=== PATIENT | female | born 1995 | race Hispanic/Latino ===

== ENCOUNTER 2018-02-22 01:59 | Emergency (ER) | payer OTHER ==
--- NOTE | 2018-02-22 02:36 | EDPHYS ---
Physician Documentation [facility] Name: Esther Royal Age: 22 yrs Sex: Female : 1995 Arrival Date: 02/22/2018 Time: 02:01 Bed 19 Private MD: EVE WILDE ED Physician Yahir Perry HPI: 02/22 02:24 This 22 yrs old Female presents to ER via Ambulatory with complaints of shannan Vaginal Bleeding, + Preg <12wks. 02:24 The patient presents to the emergency department with vaginal bleeding. 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 - Social history:: Smoking status: Patient/guardian denies using tobacco, Patient uses street drugs, marijuana. - Ebola Screening: : No symptoms or risks identified at this time. ROS: 02:24 Constitutional: Negative for fever, chills, and weight loss, Eyes: Negative for injury, shannan pain, redness, and discharge, ENT: Negative for injury, pain, and discharge, Neck: Negative for injury, pain, and swelling, Cardiovascular: Negative for chest pain, palpitations, and edema, Respiratory: Negative for shortness of breath, cough, wheezing, and pleuritic chest pain, Abdomen/GI: Negative for abdominal pain, nausea, vomiting, diarrhea, and constipation, Back: Negative for injury and pain, MS/Extremity: Negative for injury and deformity, Skin: Negative for injury, rash, and discoloration, Neuro: Negative for headache, weakness, numbness, tingling, and seizure, Psych: Negative for depression, anxiety, suicide ideation, homicidal ideation, and hallucinations, Allergy/Immunology: Negative for hives, rash, and allergies, Endocrine: Negative for neck swelling, polydipsia, polyuria, polyphagia, and marked weight changes, Hematologic/Lymphatic: Negative for swollen nodes, abnormal bleeding, and unusual bruising. 02:24 : Positive for vaginal bleeding. Exam: 02:24 Constitutional: This is a well developed, well nourished patient who is awake, alert, shannan and in no acute distress. Head/Face: Normocephalic, atraumatic. Eyes: Pupils equal round and reactive to light, extra-ocular motions intact. Lids and lashes normal. Conjunctiva and sclera are non-icteric and not injected. Cornea within normal limits. Periorbital areas with no swelling, redness, or edema. ENT: Nares patent. No nasal discharge, no septal abnormalities noted. Tympanic membranes are normal and external auditory canals are clear. Oropharynx with no redness, swelling, or masses, exudates, or evidence of obstruction, uvula midline. Mucous membranes moist. Neck: Trachea midline, no thyromegaly or masses palpated, and no cervical lymphadenopathy. Supple, full range of motion without nuchal rigidity, or vertebral point tenderness. No Meningismus. Chest/axilla: Normal chest wall appearance and motion. Nontender with no deformity. No lesions are appreciated. Cardiovascular: Regular rate and rhythm with a normal S1 and S2. No gallops, murmurs, or rubs. Normal PMI, no JVD. No pulse deficits. Respiratory: Lungs have equal breath sounds bilaterally, clear to auscultation and percussion. No rales, rhonchi or wheezes noted. No increased work of breathing, no retractions or nasal flaring. Abdomen/GI: Soft, non-tender, with normal bowel sounds. No distension or tympany. No guarding or rebound. No evidence of tenderness throughout. Back: No spinal tenderness. No costovertebral tenderness. Full range of motion. Skin: Warm, dry with normal turgor. Normal color with no rashes, no lesions, and no evidence of cellulitis. MS/ Extremity: Pulses equal, no cyanosis. Neurovascular intact. Full, normal range of motion. Neuro: Awake and alert, GCS 15, oriented to person, place, time, and situation. Cranial nerves II-XII grossly intact. Motor strength 5/5 in all extremities. Sensory grossly intact. Cerebellar exam normal. Normal gait. Psych: Awake, alert, with orientation to person, place and time. Behavior, mood, and affect are within normal limits. 02:24 Musculoskeletal/extremity: DVT Exam: No signs of deep vein thrombosis. no pain, no swelling, no tenderness, negative Homans' sign noted on exam, no appreciated bluish discoloration, no erythema, no increased warmth. Vital Signs: 02:21 BP 118 / 75; Pulse 107; Resp 20; Temp 98; Pulse Ox 99% on R/A; Weight 79.38 kg (R); ak1 Height 5 ft. 5 in. (165.10 cm); Pain 5/10; 02:21 Body Mass Index 29.12 (79.38 kg, 165.10 cm) ak1 MDM: 02:19 Patient medically screened. [facility] 02:25 Data reviewed: vital signs, nurses notes, lab test result(s), urinalysis. [facility] 02/22 02:47 Order name: Urine Dipstick--Ancillary (enter results) [facility] 02/22 02:47 Order name: Urine --Ancillary (enter results) [facility] 02/22 02:24 Order name: Urine Dipstick-Ancillary (obtain specimen); Complete Time: 02:39 [facility] 02/22 02:24 Order name: Urine Test (obtain specimen); Complete Time: 02:39 [facility] Administered Medications: No medications were administered Point of Care Testing: Urine : 02:43 hCG Reading: Negative; Control Reading: Positive; bs1 Disposition: 02/22/18 02:35 Discharged to Home. Impression: Dysmenorrhea, unspecified. - Condition is Stable. - Discharge Instructions: Dysmenorrhea, Dysmenorrhea, [id number]. - Medication Reconciliation Form, Thank You Letter, Antibiotic Education, Prescription Opioid Use form. - Follow up: EVE WILDE; When: 2 - 3 days; Reason: Recheck today's complaints, Continuance of care, Re-evaluation by your physician. - Problem is new. - Symptoms have improved. Signatures: Dispatcher [employer] EDMS Yahir Perry MD MD cha Krenek, Amber RN RN ak1 Lore Kraft RN RN bs1 Corrections: (The following items were deleted from the chart) 02:54 02:35 02/22/2018 02:35 Discharged to Home. Impression: Dysmenorrhea, unspecified. bs1 Condition is Stable. Forms are Medication Reconciliation Form, Thank You Letter, Antibiotic Education, Prescription Opioid Use. Follow up: EVE WILDE; When: 2 - 3 days; Reason: Recheck today's complaints, Continuance of care, Re-evaluation by your physician. Problem is new. Symptoms have improved. shannan
--- NOTE | 2018-02-22 02:36 | ER ---
Nurse's Notes [facility] Name: Esther Royal Age: 22 yrs Sex: Female : 1995 Arrival Date: 02/22/2018 Time: 02:01 Bed 19 Private MD: EVE WILDE Diagnosis: Dysmenorrhea, unspecified Presentation: 02/22 02:13 Presenting complaint: Patient states: she starting having vaginal bleeding using 1 pad ak1 and 1 tampon. pt c/o abd cramps. pt stated she was drinking "2 priyanka's" and smoking weed when the bleeding started. pt can not recall LMP due to having in October 2017. Transition of care: patient was not received from another setting of care. Onset of symptoms was February 22, 2018. Risk Assessment: Do you want to hurt yourself or someone else? Patient reports no desire to harm self or others. Initial Sepsis Screen: Does the patient meet any 2 criteria? No. Patient's initial sepsis screen is negative. Does the patient have a suspected source of infection? No. Patient's initial sepsis screen is negative. Care prior to arrival: None. 02:13 Method Of Arrival: Ambulatory ak1 02:13 Acuity: PAVEL 3 ak1 Triage Assessment: 02:21 General: Appears unkempt, Behavior is crying. Pain: Complains of pain in suprapubic ak1 area, right lower quadrant and left lower quadrant. EENT: No signs and/or symptoms were reported regarding the EENT system. Neuro: No deficits noted. Cardiovascular: No deficits noted. Respiratory: No deficits noted. GI: Reports cramping. : Reports vaginal bleeding that is light flow, spotty. Derm: No signs and/or symptoms reported regarding the dermatologic system. Musculoskeletal: No signs and/or symptoms reported regarding the musculoskeletal system. 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 - Social history:: Smoking status: Patient/guardian denies using tobacco, Patient uses street drugs, marijuana. - Ebola Screening: : No symptoms or risks identified at this time. Screenin:23 Abuse screen: Denies threats or abuse. Denies injuries from another. Nutritional ak1 screening: No deficits noted. Tuberculosis screening: No symptoms or risk factors identified. Fall Risk None identified. Assessment: 02:30 General: Appears in no apparent distress. Behavior is cooperative, Smells of alcohol, bs1 Marijuana. Pain: Denies pain. Neuro: Level of Consciousness is awake, alert, obeys commands, Oriented to person, place, time, situation, Appropriate for age. Cardiovascular: Heart tones S1 S2 present Capillary refill < 3 seconds Patient's skin is warm and dry. Respiratory: Airway is patent Breath sounds are clear bilaterally. GI: Abdomen is round non-distended, Bowel sounds present X 4 quads. : Urine is clear, Reports vaginal bleeding that is bright red, heavy flow. EENT: No signs and/or symptoms were reported regarding the EENT system. Derm: Skin is intact. Musculoskeletal: Circulation, motion, and sensation intact. Capillary refill < 3 seconds, Range of motion: intact in all extremities. 02:50 Reassessment: Patient appears in no apparent distress at this time. Patient and/or bs1 family updated on plan of care and expected duration. Pain level reassessed. Patient is alert, oriented x 3, equal unlabored respirations, skin warm/dry/pink. 02:50 Obstetrical Assessment: General assessment: awake and alert. bs1 Vital Signs: 02:21 BP 118 / 75; Pulse 107; Resp 20; Temp 98; Pulse Ox 99% on R/A; Weight 79.38 kg (R); ak1 Height 5 ft. 5 in. (165.10 cm); Pain 5/10; 02:21 Body Mass Index 29.12 (79.38 kg, 165.10 cm) ak1 Vitals: 02:43 Heart Tones N/A. bs1 ED Course: 02:01 Patient arrived in ED. ds1 02:16 EVE WILDE is Private Physician. ds1 02:19 Yahir Perry MD is Attending Physician. [facility] 02:19 Triage completed. ak1 02:21 Arm band placed on Patient placed in an exam room, on a stretcher, on pulse oximetry, ak1 Patient notified of wait time. 02:23 Patient has correct armband on for positive identification. Bed in low position. Call ak1 light in reach. Side rails up X 1. 02:24 Lore Kraft, RN is Primary Nurse. bs1 02:35 EVE WILDE is Referral Physician. [facility] 02:43 No provider procedures requiring assistance completed. Patient did not have IV access bs1 during this emergency room visit. Administered Medications: No medications were administered Point of Care Testing: Urine : 02:43 hCG Reading: Negative; Control Reading: Positive; bs1 Outcome: 02:35 Discharge ordered by . shannan 02:50 Discharged to home ambulatory. bs1 02:50 Condition: stable 02:50 Discharge instructions given to patient, Instructed on discharge instructions, follow up and referral plans. Demonstrated understanding of instructions, follow-up care. 02:54 Patient left the ED. bs1 Signatures: Yahir Perry MD MD cha Sanford, Demi ds1 Piper Smart RN RN ak1 Lore Kraft, GABRIELLA RN bs1
[2018-02-22 03:06] LABS: Urine Blood 2+ (NEG); Urine Glucose NEGATIVE (NEG); Urine Protein NEGATIVE (NEG)
== END 2018-02-22 02:54 | disposition home or self-care (01) ==
LOC: ER 01:59
DX: N94.6 Dysmenorrhea, unspecified (principal); E03.9 Hypothyroidism, unspecified
CPT/HCPCS: 81003; 81025; 99283

== ENCOUNTER 2019-06-27 14:52 | Emergency (ER) | payer OTHER ==
--- OUTSIDE RECORDS SUMMARY | 2019-06-27 14:55 | XMS REPORT ---
:1995 [facility] Address [address] [place] [address] Dr. Apodaca [address] [place] [id number] Care Team Providers Name Role Phone Unavailable Unavailable Unavailable Problems This patient has no known problems. Allergies, Adverse Reactions, Alerts This patient has no known allergies or adverse reactions. Medications This patient has no known medications.
[2019-06-27] MEDS ORDERED: AZITHROMYCIN 250 MG TAB ONE (15:41)
[2019-06-27] MEDS ORDERED: CEFTRIAXONE 1000 MG/VIAL ONE (15:42)
--- NOTE | 2019-06-27 15:54 | ER ---
Nurse's Notes [facility] Name: Esther Royal Age: 23 yrs Sex: Female : 1995 Arrival Date: 06/27/2019 Time: 14:55 Bed 7 Private MD: Diagnosis: Urinary tract infection, site not specified;Unspecified sexually transmitted disease-exposure to chlamydia and gonorrhea Presentation: 06/27 15:01 Presenting complaint: Patient states: my x boyfriend went to get checked about a week tw2 ago and he has chlamydia and gonorrhea and they told him to tell me to come in and get tested, and the bottom my back is hurting but i feel like i have BV and it has a smell. i have white vaginal discharge but it smells. Transition of care: patient was not received from another setting of care. Onset of symptoms was June 27, 2019. Risk Assessment: Do you want to hurt yourself or someone else? Patient reports no desire to harm self or others. Initial Sepsis Screen: Does the patient meet any 2 criteria? No. Patient's initial sepsis screen is negative. Does the patient have a suspected source of infection? No. Patient's initial sepsis screen is negative. Care prior to arrival: None. 15:01 Method Of Arrival: Ambulatory tw2 15:05 Acuity: PAVEL 3 tw2 Triage Assessment: 15:03 General: Appears in no apparent distress. Behavior is calm, cooperative, appropriate tw2 for age. Pain: Also complains of. Musculoskeletal: Reports pain in left low back and right low back. 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 - Social history:: Smoking status: . - Ebola Screening: : Patient denies exposure to infectious person. Screenin:09 Abuse screen: Denies threats or abuse. Nutritional screening: No deficits noted. tw2 Tuberculosis screening: No symptoms or risk factors identified. Fall Risk None identified. Assessment: 15:09 Reassessment: pt given urine specimen cup and ambulated to the restroom at this time. tw2 15:20 General: Appears comfortable, Behavior is calm, cooperative. Pain: Complains of pain in aa5 left low back and right low back Pain does not radiate. Pain currently is 5 out of 10 on a pain scale. Quality of pain is described as aching, Is continuous. Neuro: Level of Consciousness is awake, alert, obeys commands, Oriented to person, place, time, situation. Cardiovascular: Heart tones S1 S2 present Patient's skin is warm and dry. Rhythm is regular. Respiratory: Airway is patent Respiratory effort is even, unlabored, Respiratory pattern is regular, symmetrical. GI: Abdomen is round non-distended, Bowel sounds present X 4 quads. Abd is soft and non tender X 4 quads. : Reports discharge, white. EENT: No signs and/or symptoms were reported regarding the EENT system. Derm: Skin is pink, warm \T\ dry. Musculoskeletal: Range of motion: intact in all extremities. 16:00 Reassessment: Patient is alert, oriented x 3, equal unlabored respirations, skin aa5 warm/dry/pink. Vital Signs: 15:04 BP 120 / 90; Pulse 119; Resp 17; Temp 98.4(TE); Pulse Ox 99% on R/A; Weight 54.43 kg tw2 (R); 16:00 BP 118 / 84; Pulse 100; Resp 16 S; Pulse Ox 99% on R/A; aa5 ED Course: 14:55 Patient arrived in ED. mr 14:57 Dariusz Marianne, HOW[facility]. kb 14:57 Kory Davila MD is Attending Physician. kb 15:03 Triage completed. tw2 15:03 Arm band placed on. tw2 15:07 Vianey Jerez, GABRIELLA is Primary Nurse. aa5 15:09 Call light in reach. tw2 15:20 No provider procedures requiring assistance completed. aa5 15:40 Urine collected: clean catch specimen, cloudy, moe colored. jb1 16:00 Patient did not have IV access during this emergency room visit. aa5 Administered Medications: 15:48 Drug: Zithromax 1 grams Route: PO; rv 16:00 Follow up: Response: No adverse reaction aa5 15:49 Drug: Rocephin (cefTRIAXone) 250 mg Route: IM; Site: left gluteus; rv 16:00 Follow up: Response: No adverse reaction aa5 15:57 CANCELLED (Physician Discretion): metroNIDAZOLE 2 grams PO once kb Outcome: 15:54 Discharge ordered by . kb 16:00 Discharged to home ambulatory. aa5 16:00 Condition: good 16:00 Discharge instructions given to patient, Instructed on discharge instructions, follow up and referral plans. medication usage, Demonstrated understanding of instructions, follow-up care, medications, Prescriptions given X 1. 16:03 Patient left the ED. aa5 Addendum: 06/30/2019 07:11 Addendum: Culture Results: Positive urine culture. No further action required. Bacteria e b sensitive to prescribed antibiotic. Signatures: Roberto Carlos Elizalde jbMarianne Galicia, TRAFFIC ENGINEERING DIRECTOR-C TRAFFIC ENGINEERING DIRECTOR-Ckb Rosanna Winkler, RN RN aj1 Guerda Escalante Solitario, Vianey, RN RN aa5 Kristin Bonilla RN RN 2 Kayla Sampson Ronaldo, GABRIELLA RN rv Corrections: (The following items were deleted from the chart) 06/27 15:05 15:01 Acuity: PAVEL 4 tw2 tw2 15:07 15:01 Rosanna Winkler, RN is Primary Nurse. aj1 aa5 15:07 15:07 Primary Nurse role handed off by Rosanna Winkler, RN [place] [id number]
--- NOTE | 2019-06-27 15:55 | EDPHYS ---
Physician Documentation [facility] Name: Esther Royal Age: 23 yrs Sex: Female : 1995 Arrival Date: 06/27/2019 Time: 14:55 Bed 7 Private MD: ED Physician Kory Davila HPI: 06/27 15:29 This 23 yrs old Female presents to ER via Ambulatory with complaints of STD kb Exposure. 15:30 The patient presents with a possible exposure to a sexually transmitted disease, kb gonorrhea, chlamydia, urinary symptoms, dysuria, frequency. Onset: The symptoms/episode began/occurred 2 week(s) ago. Modifying factors: The symptoms are alleviated by nothing, the symptoms are aggravated by urinating. Associated signs and symptoms: Pertinent positives: dysuria, urinary frequency, vaginal discharge. Severity of symptoms: At their worst the symptoms were moderate, in the emergency department the symptoms are unchanged. The patient has not experienced similar symptoms in the past. The patient has not recently seen a physician. Pt reports her ex-boyfriend called and told her he had chlamydia and gonorrhea and she needed to get tested. Pt reports white, foul smelling discharge for a couple of weeks. Pt also reports dysuria, frequency, foul smelling urine. 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 - Social history:: Smoking status: . - Ebola Screening: : Patient denies exposure to infectious person. ROS: 15:29 Constitutional: Negative for fever, chills, and weight loss, Cardiovascular: Negative kb for chest pain, palpitations, and edema, Respiratory: Negative for shortness of breath, cough, wheezing, and pleuritic chest pain, Abdomen/GI: Negative for abdominal pain, nausea, vomiting, diarrhea, and constipation, Back: Negative for injury and pain, MS/Extremity: Negative for injury and deformity, Skin: Negative for injury, rash, and discoloration, Neuro: Negative for headache, weakness, numbness, tingling, and seizure. 15:29 : Positive for urinary symptoms, urinary frequency, burning with urination, foul smelling urine, vaginal discharge. Exam: 15:29 Constitutional: This is a well developed, well nourished patient who is awake, alert, kb and in no acute distress. Head/Face: Normocephalic, atraumatic. Neck: Trachea midline, no thyromegaly or masses palpated, and no cervical lymphadenopathy. Supple, full range of motion without nuchal rigidity, or vertebral point tenderness. No Meningismus. Chest/axilla: Normal chest wall appearance and motion. Nontender with no deformity. No lesions are appreciated. Cardiovascular: Regular rate and rhythm with a normal S1 and S2. No gallops, murmurs, or rubs. Normal PMI, no JVD. No pulse deficits. Respiratory: Lungs have equal breath sounds bilaterally, clear to auscultation and percussion. No rales, rhonchi or wheezes noted. No increased work of breathing, no retractions or nasal flaring. Abdomen/GI: Soft, non-tender, with normal bowel sounds. No distension or tympany. No guarding or rebound. No evidence of tenderness throughout. Back: No spinal tenderness. No costovertebral tenderness. Full range of motion. Skin: Warm, dry with normal turgor. Normal color with no rashes, no lesions, and no evidence of cellulitis. MS/ Extremity: Pulses equal, no cyanosis. Neurovascular intact. Full, normal range of motion. Neuro: Awake and alert, GCS 15, oriented to person, place, time, and situation. Cranial nerves II-XII grossly intact. Motor strength 5/5 in all extremities. Sensory grossly intact. Cerebellar exam normal. Normal gait. Vital Signs: 15:04 BP 120 / 90; Pulse 119; Resp 17; Temp 98.4(TE); Pulse Ox 99% on R/A; Weight 54.43 kg tw2 (R); 16:00 BP 118 / 84; Pulse 100; Resp 16 S; Pulse Ox 99% on R/A; aa5 MDM: 15:06 Patient medically screened. 15:29 Data reviewed: vital signs, nurses notes. Data interpreted: Pulse oximetry: on room air kb is 99 %. Interpretation: normal. 15:44 Counseling: I had a detailed discussion with the patient and/or guardian regarding: the kb historical points, exam findings, and any diagnostic results supporting the discharge/admit diagnosis, lab results, the need for outpatient follow up, an OB/Gyne specialist, to return to the emergency department if symptoms worsen or persist or if there are any questions or concerns that arise at home. 15:51 ED course: Pt reports she has to leave to get ready for work. Educated that we are kb waiting for microscopic exam of urine to come back before discharge to make sure there is no trichomoniasis. Pt requests to get the treatment for that and leave now. Educated not to consume alcohol after taking Flagyl due to antibuse affect. Verbal understanding received. . 15:57 ED course: urine micro returned. No trichomoniasis in urine. . kb 06/27 15:17 Order name: Urine Microscopic Only; Complete Time: 15:57 kb 06/27 15:41 Order name: Urine Dipstick--Ancillary (enter results) sp 06/27 15:41 Order name: Urine --Ancillary (enter results) 06/27 15:58 Order name: Urine Culture EDIA 06/27 15:17 Order name: Urine Test (obtain specimen); Complete Time: 15:32 kb 06/27 15:17 Order name: Urine Dipstick-Ancillary (obtain specimen); Complete Time: 15:32 kb Administered Medications: 15:48 Drug: Zithromax 1 grams Route: PO; rv 16:00 Follow up: Response: No adverse reaction aa5 15:49 Drug: Rocephin (cefTRIAXone) 250 mg Route: IM; Site: left gluteus; rv 16:00 Follow up: Response: No adverse reaction aa5 15:57 CANCELLED (Physician Discretion): metroNIDAZOLE 2 grams PO once kb Disposition: 18:14 Co-signature as Attending Physician, Kory Davila MD. rn Disposition: 06/27/19 15:54 Discharged to Home. Impression: Urinary tract infection, site not specified, Unspecified sexually transmitted disease - exposure to chlamydia and gonorrhea. - Condition is Stable. - Discharge Instructions: Sexually Transmitted Disease, Vqoi-yk-Ywdn, Urinary Tract Infection, Adult, Eoxf-py-Saxl. - Prescriptions for Bactrim DS 800- 160 mg Oral Tablet - take 1 tablet by ORAL route every 12 hours for 10 days; 20 tablet. - Medication Reconciliation Form, Thank You Letter, Antibiotic Education, Prescription Opioid Use form. - Follow up: Emergency Department; When: As needed; Reason: Worsening of condition. Follow up: Private Physician; When: 2 - 3 days; Reason: Recheck today's complaints, Continuance of care, Re-evaluation by your physician. Signatures: Dispatcher [employer] EDMarianne Egan, GEOFFREY-C UNDERGROUND UTILITY LOCATOR-Kory Fuentes MD MD rn Calderon, Audri RN RN aa5 Kristin Bonilla RN RN tw2 En Keene RN RN rv Corrections: (The following items were deleted from the chart) 15:57 15:54 Flagyl [metroNIDAZOLE 2 grams PO once] ordered. kb kb 16:03 15:54 06/27/2019 15:54 Discharged to Home. Impression: Urinary tract infection, site aa5 not specified; Unspecified sexually transmitted disease - exposure to chlamydia and gonorrhea. Condition is Stable. Discharge Instructions: Sexually Transmitted Disease, Vsfg-sr-Sqoh, Urinary Tract Infection, Adult, Jzwg-qp-Pzbq. Prescriptions for Bactrim DS 800-160 mg Oral Tablet - take 1 tablet by ORAL route every 12 hours for 10 days; 20 tablet. and Forms are Medication Reconciliation Form, Thank You Letter, Antibiotic Education, Prescription Opioid Use. Follow up: Emergency Department; When: As needed; Reason: Worsening of condition. Follow up: Private Physician; When: 2 - 3 days; Reason: Recheck today's complaints, Continuance of care, Re-evaluation by your physician. kb
[2019-06-27 15:56] LABS: Urine Bacteria LOADED /HPF (<20); Urine Culture Reflex Order REFLEXED; Urine RBC <5 /HPF (NONE SEEN)
[2019-06-27 16:19] VITALS: BP 120/90; TEMP 98.4; O2SAT 99
[2019-06-27 16:26] LABS: Urine Blood TRACE (NEG); Urine Glucose NEGATIVE (NEG); Urine Protein NEGATIVE (NEG); Urine Specific Gravity 1.025 (1.005-1.030)
== END 2019-06-27 16:03 | disposition home or self-care (01) ==
LOC: ER 14:52
DX: N39.0 Urinary tract infection, site not specified (principal); A64 Unspecified sexually transmitted disease; Z20.2 Contact with and (suspected) exposure to infections with a predominantly sexual mode of transmission; E03.9 Hypothyroidism, unspecified
CPT/HCPCS: 81003; 81015; 81025; 87077; 87086; 87088; 87186; 96372; 99283

== ENCOUNTER 2020-03-11 05:08 | Inpatient (IN) | payer OTHER ==
[2020-03-11] MEDS ORDERED: BUTORPHANOL 1 MG/ML INJ IV PRN (16:06)
[2020-03-11] MEDS ORDERED: Ringers Lactate 1,000 ML IV PRN (16:06)
[2020-03-11] MEDS ORDERED: PROMETHAZINE INJ 25 MG/ML AMP IM PRN (16:06)
[2020-03-11] MEDS ORDERED: miSOPROStoL 100 MCG TAB VAG PRN (16:09)
[2020-03-11] MEDS ORDERED: ZOLPIDEM TARTRATE 10 MG TABLET PO PRN (16:13)
[2020-03-11] MEDS ORDERED: OXYTOCIN/LR 20 UNIT/1,000 ML BAG IV SCH (17:00)
[2020-03-11] MEDS ORDERED: Ringers Lactate 1,000 ML IV SCH (17:00)
[2020-03-11 17:06] LABS: Urine Appearance CLEAR; Urine Bilirubin NEGATIVE (NEG); Urine Blood NEGATIVE (NEG); Urine Color YELLOW; Urine Glucose NEGATIVE (NEG); Urine Protein NEGATIVE (NEG)
[2020-03-11 17:07] LABS: Urine Microscopic Reflex ORDER UMIC
[2020-03-11 17:17] LABS: Urine Bacteria 20-50 /HPF (<20); Urine RBC <5 /HPF (NONE SEEN)
[2020-03-11 17:18] LABS: Absolute Lymphocytes (CBC) 1.8 K/uL (0.7-4.9); Basophils % 0.7 % (0-1.3); Hematocrit 31.5 % (36.0-45.0); Lymphocytes % 17.8 % (15.3-44.8); RBC Red Blood Cell Count 3.77 M/uL (3.86-4.86); Urine Culture Reflex Order REFLEXED; Urine Mucus 2+ /HPF (NONE SEEN)
--- OUTSIDE RECORDS SUMMARY | 2020-03-11 22:42 | XMS REPORT | Continuity of Care Document ---
:1995 Author Organization [facility] t Address [address] [place] [address] Care Team Providers Name Role Phone Rinku HALE Attending Clinician Lab, Teja Maddox I Attending Clinician Unavailable Problems This patient has no known problems. Allergies, Adverse Reactions, Alerts This patient has no known allergies or adverse reactions. Medications This patient has no known medications. Procedures This patient has no known procedures. Encounters Start End Encounter Admission Attending Care Care Encounter Source Date/Time Date/Time Type Type Clinicians Facility Department ID 2020-02-26 2020-02-26 Letter BENEDICT Dobbs [id number] 00:00:00 00:00:00 (Out) Vy Byrnes [id number] [place] [id number] Professio [phone] [address] 2020-02-26 2020-02-26 Letter BENEDICT Dobbs [id number] 00:00:00 00:00:00 (Out) Vy [place] [id number] [place] [id number] Professio [phone] [address] 2020-02-23 2020-02-23 Telephone MAURIZIO Dobbs [id number] 00:00:00 00:00:00 Vy DIOP [id number] [facility] [id number] 2020-02-22 2020-02-22 Laboratory Lab, [facility] [id number] 09:46:55 10:06:55 Only Fam Pob I [facility] [id number] [place] [id number] [facility] [phone] nal [phone] One Results This patient has no known results.
[2020-03-12 00:50] LABS: RPR (Rapid Plasma Reagin) NON-REACT (NON-REACT)
[2020-03-12] MEDS ORDERED: METHYLERGONOVINE 0.2MG/ML AMP IM ONE (06:15)
[2020-03-12] MEDS ORDERED: CARBOPROST TROME 250 MCG/ML IM ONE (06:15)
[2020-03-12] MEDS ORDERED: LIDOCAINE 1% MPF 30 ML VIAL ONE (06:15)
[2020-03-12] MEDS ORDERED: BISACODYL 10 MG RECTAL SUPP RECT PRN (06:45)
[2020-03-12] MEDS ORDERED: Oxycodone HCl/Acetaminophen 1 TAB TAB PO PRN ×2 (06:45)
[2020-03-12] MEDS ORDERED: ACETAMINOPHEN 500 MG TAB PO PRN (06:45)
[2020-03-12] MEDS ORDERED: DIPHENHYDRAMINE 25 MG TAB/CAP PO PRN (06:45)
[2020-03-12] MEDS ORDERED: DOCUSATE NA/SENNA CONC 1 TAB PO PRN (06:45)
[2020-03-12] MEDS ORDERED: OXYTOCIN/LR 20 UNIT/1,000 ML BAG IV SCH (07:00)
[2020-03-12] MEDS ORDERED: Ringers Lactate 1,000 ML IV ONE (07:20)
[2020-03-12] MEDS: IBUPROFEN 200 MG TAB PO PRN ×3 (07:50→23:45)
--- NOTE | 2020-03-12 08:40 | OP ---
Surgeon: Cooper Sommers MD A 24-year-old 2, para 0, 39 weeks 2 days, had Cytotec inserted yesterday x3, 50 mcg doses. T his morning, she was 2 cm, but within the next 15 to 20 minutes, went to complete. Spontaneous preci pitous, but controlled vaginal delivery of 7 pounds 6 ounces female, Apgars 9 and 9. Bilateral first -degree lacerations sutured with 2-0 chromic under local infiltration. Schultze delivery of the plac enta, which inspected and noted to be intact and normal. Less than 350 cc blood loss. The patient h ad 1 mg of Stadol and 25 mg of Phenergan IM approximately 3 hours ago. Tolerated all procedures well . Final Diagnoses: Intrauterine gestation, 39 weeks 2 days, Cytotec for labor induction. Vaginal deli very at 39 weeks 3 days, precipitous but controlled. Anemia during her , anemia on admissio n, will be addressed. DUSTIN/PRATIMA Voice ID: [id number] Report ID: [id number]
--- NOTE | 2020-03-12 09:10 | PREOPHP ---
Date of Admission: 03/11/2020 History: A 24-year-old 2, para 0, 39 weeks 2 days, history of herpes, herpes free interval, and the patient is on acyclovir. Discussion several times in the office about Cytotec. We have deci ded to proceed at this time. Hyperstimulation, increased chance for section, all discussed. The patient is 1.5 cm, 40% to possibly 50% effaced, -1 station. Vertex well applied. We will inse rt 50 mcg of Cytotec q.6 hours and then Pitocin beginning tomorrow. This is a ripening process. The patient is well aware of this. Full labor talk given to the patient and her mother. Beta strep neg ative, Rh positive, immune to Rubella. ERINC/MODL Voice ID: [id number]
[2020-03-12 18:37] LABS: Barbiturates NEGATIVE (NEGATIVE); Benzodiazepines POSITIVE (NEGATIVE); Cocaine NEGATIVE (NEGATIVE); METHAMPHETAM NEGATIVE (NEGATIVE); Methadone NEGATIVE (NEGATIVE); Opiates NEGATIVE (NEGATIVE); Phencyclidine NEGATIVE (NEGATIVE); THC Cannibis NEGATIVE (NEGATIVE)
[2020-03-13] MEDS ORDERED: Tdap (Diph,Pertuss(Acell),Tet Vac) 0.5 ML SYR IMVAC ONE (07:37)
[2020-03-13 09:15] VITALS: BP 122/64; TEMP 97.6
--- NOTE | 2020-03-13 10:20 | DS ---
Esther Royal is a 24-year-old 2, para 0, 39 weeks 3 days, had Cytotec for cervical ripening. Went into a very active labor. Had a precipitous, but controlled delivery of a 7 pounds 6 ounces fe male, Apgars 9 and 9. Bilateral first-degree lacerations repaired with 2-0 chromic under local infil tration. During the labor, had Stadol 1 mg IV, Phenergan 25 mg IM. Schultze delivery of the placent a, which was inspected and noted to be intact. 350 cc or less blood loss. Rh positive, immune to ru jazmin. Negative beta strep screen. ; afebrile, ambulating and voiding. Lochia is normal. Apparently had some anonymous , called CPS, told them the patient was taking Xanax during her . Drug screen showed indeed benzodiazepine. CPS has gotten involved and talked to the patient. From an obstetrical standpoint, she is doing quite well and will be dismissed later today. Final Diagnoses: Term intrauterine , 39 weeks 3 days, Cytotec for cervical ripening. Labor induction. Vaginal delivery. Positive drug screen. CPS involved. Tdap offered. DUSTIN/PRATIMA Voice ID: [id number] Report ID: [id number]
[2020-03-18 12:03] LABS: HBsAG Nonreactive (Nonreactive)
== END 2020-03-13 10:35 | disposition home or self-care (01) | DRG 807 ==
LOC: 2ND-WC 16:02
PROVIDERS: ADMIT Specialist; ATTEND Specialist
PROC: 3E0P7VZ Introduction of Hormone into Female Reproductive, Via Natural or Artificial Opening (ICD-10-PCS; principal; 2020-03-12)
PROC: 10E0XZZ Delivery of Products of Conception, External Approach (ICD-10-PCS; 2020-03-12)
PROC: 10907ZC Drainage of Amniotic Fluid, Therapeutic from Products of Conception, Via Natural or Artificial Opening (ICD-10-PCS; 2020-03-12)
PROC: 0HQ9XZZ Repair Perineum Skin, External Approach (ICD-10-PCS; 2020-03-12)
DX: O98.32 Other infections with a predominantly sexual mode of transmission complicating childbirth (principal); Z37.0 Single live birth; A60.09 Herpesviral infection of other urogenital tract; O99.02 Anemia complicating childbirth; D64.9 Anemia, unspecified; F19.90 Other psychoactive substance use, unspecified, uncomplicated; Z3A.39 39 weeks gestation of pregnancy; Z23 Encounter for immunization; Z11.59 Encounter for screening for other viral diseases
CPT/HCPCS: 36415; 80307; 81003; 81015; 85025; 86592; 86901; 87086; 87088; 87340; 90471; 90715; J0595; J2210; J2550; J2590; J7120; U0002

== ENCOUNTER 2020-03-14 00:02 | Emergency (ER) | payer OTHER ==
--- OUTSIDE RECORDS SUMMARY | 2020-03-14 00:04 | XMS REPORT | Continuity of Care Document ---
:1995 Author Organization [facility] t Address [address] [place] [address] Care Team Providers Name Role Phone Rinku HALE Attending Clinician Lab, Teja Pob I Attending Clinician Unavailable Problems This patient has no known problems. Allergies, Adverse Reactions, Alerts This patient has no known allergies or adverse reactions. Medications This patient has no known medications. Procedures This patient has no known procedures. Encounters Start End Encounter Admission Attending Care Care Encounter Source Date/Time Date/Time Type Type Clinicians Facility Department ID 2020-02-26 2020-02-26 Letter BENEDICT Dobbs [id number] 00:00:00 00:00:00 (Out) Vy Byrnes [id number] [place] [id number] Professio [phone] [address] 2020-02-26 2020-02-26 Letter BENEDICT Dobbs [id number] 00:00:00 00:00:00 (Out) Vy Byrnes [id number] [place] [id number] Professio [phone] [address] 2020-02-23 2020-02-23 Telephone MAURIZIO Dobbs [id number] 00:00:00 00:00:00 Vy DIOP [id number] [facility] [id number] 2020-02-22 2020-02-22 Laboratory Lab, [facility] [id number] 09:46:55 10:06:55 Only Fam Pob I [facility] [id number] [place] [id number] Professio [phone] nal [phone] One Results This patient has no known results.
[2020-03-14 00:52] LABS: Protime INR 0.9
[2020-03-14 00:56] LABS: Barbiturates NEGATIVE (NEGATIVE); Benzodiazepines NEGATIVE (NEGATIVE); Cocaine NEGATIVE (NEGATIVE); METHAMPHETAM NEGATIVE (NEGATIVE); Methadone NEGATIVE (NEGATIVE); Opiates NEGATIVE (NEGATIVE); Phencyclidine NEGATIVE (NEGATIVE); THC Cannibis NEGATIVE (NEGATIVE)
[2020-03-14 00:58] LABS: Absolute Lymphocytes (CBC) 2.2 K/uL (0.7-4.9); Basophils % 0.5 % (0-1.3); Hematocrit 30.7 % (36.0-45.0); Lymphocytes % 17.1 % (15.3-44.8); RBC Red Blood Cell Count 3.68 M/uL (3.86-4.86)
[2020-03-14 01:06] LABS: ALT/SGPT 11 U/L (12-78); AST/SGOT 20 U/L (15-37); Albumin 2.9 g/dL (3.4-5.0); Alkaline Phosphatase 134 U/L (45-117); BUN Blood Urea Nitrogen 10 mg/dL (7-18); Bicarbonate 21 mmol/L (21-32); Bilirubin Direct < 0.1 mg/dL (0-0.2); Bilirubin Total 0.3 mg/dL (0.2-1.0); Glucose Level 82 mg/dL (74-106); Potassium 3.8 mmol/L (3.5-5.1); Protein, Total 7.2 g/dL (6.4-8.2); Sodium Level 141 mmol/L (136-145); Uric Acid 7.6 mg/dL (2.6-6.0)
[2020-03-14 02:37] LABS: Urine Blood 3+ (NEG); Urine Glucose NEGATIVE (NEG); Urine Protein 1+ (NEG); Urine pH 5.5 (5.0-7.0)
[2020-03-14] MEDS ORDERED: CEPHALEXIN 250 MG CAP ONE (02:56)
[2020-03-14] MEDS ORDERED: ACETAMINOPHEN 325 MG TABLET ONE (03:00)
--- NOTE | 2020-03-14 03:01 | ER ---
Nurse's Notes [facility] Name: Esther Royal Age: 24 yrs Sex: Female : 1995 Arrival Date: 03/14/2020 Time: 00:03 Bed 7 Private MD: Diagnosis: Epilepsy and recurrent seizures;Urinary tract infection, site not specified Presentation: 03/14 00:08 Chief complaint: EMS states: Called to pt's home by mother reports pt had a seizure ea prior to their arrival. EMS reported pt was unresponsive and then became post ictal. Coronavirus screen: Proceed with normal triage. Ebola Screen: No symptoms or risks identified at this time. Initial Sepsis Screen: Does the patient meet any 2 criteria? No. Patient's initial sepsis screen is negative. Does the patient have a suspected source of infection? No. Patient's initial sepsis screen is negative. Risk Assessment: Do you want to hurt yourself or someone else? Patient reports no desire to harm self or others. Onset of symptoms was March 14, 2020. 00:08 Method Of Arrival: EMS: [facility] ea 00:08 Acuity: PAVEL 3 ea MEDICAL CASE WORKER: 01:10 lmp unk nown mg2 Historical: - Allergies: 00:14 No Known Allergies; ea - Home Meds: 00:14 levothyroxine oral [Active]; ea - PMHx: 00:14 Hypothyroidism; ea - PSHx: 00:14 ; ea - Immunization history:: Adult Immunizations unknown. - Social history:: Smoking status: unknown. - Family history:: not pertinent. - Hospitalizations: : The patient was recently seen at [facility]. Screenin:05 Abuse screen: Denies threats or abuse. Denies injuries from another. Nutritional mg2 screening: No deficits noted. Tuberculosis screening: No symptoms or risk factors identified. Fall Risk IV access (20 points). Assessment: 00:05 General: Appears in no apparent distress. comfortable, Behavior is calm, cooperative. mg2 Pain: Denies pain. Neuro: Level of Consciousness is awake, obeys commands, confused, Oriented to person, place, time. Neuro: Reports confusion. Cardiovascular: Capillary refill < 3 seconds Patient's skin is warm and dry. Respiratory: Airway is patent Respiratory effort is even, unlabored, Respiratory pattern is regular, symmetrical. GI: No signs and/or symptoms were reported involving the gastrointestinal system. : No signs and/or symptoms were reported regarding the genitourinary system. EENT: No signs and/or symptoms were reported regarding the EENT system. Derm: Skin is intact, is healthy with good turgor, Skin is pink, warm \T\ dry. normal. Musculoskeletal: Circulation, motion, and sensation intact. Capillary refill < 3 seconds. 01:14 Reassessment: Patient appears in no apparent distress at this time. Patient and/or mg2 family updated on plan of care and expected duration. Pain level reassessed. Patient is alert, oriented x 3, equal unlabored respirations, skin warm/dry/pink. 02:15 Reassessment: Patient appears in no apparent distress at this time. Patient and/or mg2 family updated on plan of care and expected duration. Pain level reassessed. Patient is alert, oriented x 3, equal unlabored respirations, skin warm/dry/pink. 02:51 Reassessment: Patient and/or family updated on plan of care and expected duration. Pain ea level reassessed. Patient is alert, oriented x 3, equal unlabored respirations, skin warm/dry/pink. Patient states feeling better. 03:08 Reassessment: Patient and/or family updated on plan of care and expected duration. Pain ea level reassessed. Patient is alert, oriented x 3, equal unlabored respirations, skin warm/dry/pink. Discharge instruction given to patient, verbalized the understanding of instruction. Pt left ED ambulatory accompanied by family Patient states feeling better. Vital Signs: 00:08 BP 114 / 76; Pulse 91; Resp 18; Temp 98; Pulse Ox 100% ; ea 01:14 BP 124 / 86; Pulse 65; Resp 18; Pulse Ox 100% on R/A; mg2 02:15 BP 123 / 78; Pulse 65; Resp 18; Pulse Ox 100% on R/A; mg2 ED Course: 03/13 23:59 Inserted saline lock: 20 gauge in right forearm, using aseptic technique. Blood mg2 collected. 03/14 00:03 Patient arrived in ED. rn 00:03 Kory Davila MD is Attending Physician. rn 00:05 Shubham Sampson, GABRIELLA is Primary Nurse. mg2 00:05 No provider procedures requiring assistance completed. mg2 00:13 Triage completed. ea 00:13 Arm band placed on right wrist. Patient placed in an exam room, on a stretcher, on ea monitoring manager, on pulse oximetry. 00:13 Patient has correct armband on for positive identification. Placed in gown. Bed in low ea position. Call light in reach. 00:27 EKG done, by ED staff, reviewed by Kory Davila MD. ds4 00:34 CT Head Brain wo Cont In Process Unspecified. EDMS 02:59 Narciso Campbell MD is Referral Physician. rn 03:11 IV discontinued, intact, bleeding controlled, No redness/swelling at site. Pressure ea dressing applied. Administered Medications: 02:48 Drug: KeFLEX 500 mg Route: PO; ea 03:00 Follow up: Response: No adverse reaction ea 02:51 Drug: Tylenol 325 mg Route: PO; ea 03:10 Follow up: Response: No adverse reaction ea Outcome: 03:00 Discharge ordered by MD. rn 03:11 Discharged to home ambulatory, with family. ea 03:11 Condition: stable 03:11 Discharge instructions given to patient, Instructed on discharge instructions, follow up and referral plans. medication usage, Demonstrated understanding of instructions, follow-up care, medications, Prescriptions given X 1. 03:12 Patient left the ED. ea Signatures: Dispatcher [employer] EDNJ Kory Davila MD MD rn Swanson, Donovan ds4 Monie Angel, Shubham Sifuentes RN, ea RN RN mg2
--- NOTE | 2020-03-14 03:01 | EDPHYS ---
Physician Documentation [facility] Name: Esther Royal Age: 24 yrs Sex: Female : 1995 Arrival Date: 03/14/2020 Time: 00:03 Bed 7 Private MD: ED Physician Kory Davila HPI: 03/14 00:12 This 24 yrs old Female presents to ER via Unassigned with complaints of rn seizure. 00:12 The patient presents after having a single isolated seizure, the episode(s) was rn witnessed, by family. Character of seizure(s): Motor activity: generalized, Incontinence: none, Apnea: the patient did not experience apnea, Circulation: the patient did not experience evidence of pulse disturbance, Eye movements: are unknown. Seizure onset: just prior to arrival. Current symptoms: confusion. The patient has experienced similar episodes in the past. Per EMS, mother called 911 after witnessed seizure, is 1 day , normal vaginal delivery without complications, reports had been feeling fine prior to seizure. Reports has had 2 seizures prior to this seizure, unknown reason and not on seizure medication. Reports prescribed zoloft but stopped taking it when found out she was . Denies overdose. Per EMS, CPS case open for positive benzos while . Patient reports feels confused, but denies headache/chest pain/sob/vision changes/abd pain/focal neuro complaint. . 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 - Social history:: Smoking status: unknown. - Family history:: not pertinent. - Hospitalizations: : The patient was recently seen at [facility]. ROS: 00:12 Constitutional: Negative for fever, chills, and weight loss, Eyes: Negative for injury, rn pain, redness, and discharge, Neck: Negative for injury, pain, and swelling, Cardiovascular: Negative for chest pain, palpitations, and edema, Respiratory: Negative for shortness of breath, cough, wheezing, and pleuritic chest pain, Abdomen/GI: Negative for abdominal pain, nausea, vomiting, diarrhea, and constipation, Back: Negative for injury and pain, MS/Extremity: Negative for injury and deformity, Skin: Negative for injury, rash, and discoloration, Neuro: Negative for headache, weakness, numbness, tingling Exam: 00:12 Constitutional: This is a well developed, well nourished patient who is awake, alert, rn and in no acute distress. Sitting upright, legs crossed Head/Face: Normocephalic, atraumatic. Eyes: Pupils equal round and reactive to light, extra-ocular motions intact. Lids and lashes normal. Conjunctiva and sclera are non-icteric and not injected. Cornea within normal limits. Periorbital areas with no swelling, redness, or edema. ENT: MMM, no stridor Neck: Trachea midline, no thyromegaly or masses palpated, and no cervical lymphadenopathy. Supple, full range of motion without nuchal rigidity, or vertebral point tenderness. No Meningismus. Cardiovascular: Regular rate and rhythm. No pulse deficits. Respiratory: No increased work of breathing, no retractions or nasal flaring. Abdomen/GI: soft, non-tender Skin: Warm, dry, no petechiae MS/ Extremity: Pulses equal, no cyanosis. Neurovascular intact. Full, normal range of motion. Equal circumference. Neuro: Awake and alert, GCS 15, oriented to person, place, and situation. Cranial nerves II-XII grossly intact. Motor strength 5/5 in all extremities. Sensory grossly intact. Cerebellar exam normal. 00:12 ECG was reviewed by the Attending Physician. Vital Signs: 00:08 BP 114 / 76; Pulse 91; Resp 18; Temp 98; Pulse Ox 100% ; ea 01:14 BP 124 / 86; Pulse 65; Resp 18; Pulse Ox 100% on R/A; mg2 02:15 BP 123 / 78; Pulse 65; Resp 18; Pulse Ox 100% on R/A; mg2 MDM: 00:03 Patient medically screened. rn 00:21 ED course: 2 separate BP readings, both < 120/80, does not appear to be eclampsia rn related. Pt denies elevated BP during this . . 01:39 Differential diagnosis: cardiac arrhythmia, seizure, related condition, wax pattern repairer effect, seizure disorder. Data reviewed: vital signs, nurses notes. ED course: Spoke at length with mother and patient, mother aware of 1 other seizure prior to this one, patient reports 2 other seizures, one about 2 years ago and one about 1 year ago. Patient back to baseline, normal vitals, neg ct head. Patient may have undiagnosed or developing seizure disorder. Patient no longer post-ictal and denies overdose or taking medication recently. Mother and patient deny suicidal ideations or attempt. . 02:57 Counseling: I had a detailed discussion with the patient and/or guardian regarding: the rn historical points, exam findings, and any diagnostic results supporting the discharge/admit diagnosis, lab results, radiology results, the need for outpatient follow up, to return to the emergency department if symptoms worsen or persist or if there are any questions or concerns that arise at home. Response to treatment: the patient's condition has returned to base line, the patient is now symptom free, and as a result, I will discharge patient. ED course: Pt back to baseline, + UTI, breast fed baby, normal vitals, will dc home with keflex given safety profile, and urged to f/u with neurology. Mother confirms 2 other seizures, and this all seems like recurrent seizures/seizure disorder. No signs to indicate was overdose or drug related. Told mother unknown when next seizure would happen, but is to closely monitor patient while around baby, and no driving until all cleared up. . 03/14 00:05 Order name: Acetaminophen; Complete Time: 03/14 00:05 Order name: Basic Metabolic Panel; Complete Time: 03/14 00:05 Order name: CBC with Diff; Complete Time: 03/14 00:05 Order name: ETOH Level; Complete Time: 03/14 00:05 Order name: Hepatic Function; Complete Time: 03/14 00:05 Order name: PT-INR; Complete Time: 03/14 00:05 Order name: Ptt, Activated; Complete Time: 03/14 00:05 Order name: Salicylate; Complete Time: 03/14 00:05 Order name: Urine Drug Screen; Complete Time: 00:03/14 00:06 Order name: LDH; Complete Time: 03/14 00:05 Order name: EKG; Complete Time: 03/14 00:05 Order name: EKG - Nurse/Tech; Complete Time: 00: rn 03/14 00:05 Order name: IV Saline Lock; Complete Time: 00: rn 03/14 00:05 Order name: Labs collected and sent; Complete Time: 00: rn 03/14 00:05 Order name: Urine Dipstick-Ancillary (obtain specimen); Complete Time: 00: rn 03/14 00:06 Order name: Glucose Level; Complete Time: 00: rn 03/14 00:06 Order name: CT Head Brain wo Cont rn 03/14 00:24 Order name: Glucose, Ancillary Testing; Complete Time: 00:56 EDMS 03/14 00:41 Order name: Uric Acid; Complete Time: 01:09 EDMS 03/14 00:41 Order name: T4 Free; Complete Time: 01:09 EDMS 03/14 00:41 Order name: Magnesium; Complete Time: 01:09 EDMS 03/14 00:41 Order name: Thyroid Stimulating Hormone; Complete Time: 01:09 EDMS 03/14 01:47 Order name: Urine Dipstick--Ancillary (enter results); Complete Time: 02:38 ar5 EC:12 Rate is 76 beats/min. Rhythm is regular. QRS Baker is Normal. AK interval is normal. QRS rn interval is normal. QT interval is normal. No Q waves. T waves are Normal. No ST changes noted. Clinical impression: NSR w/ Non-specific ST/T Changes. Interpreted by me. Reviewed by me. Administered Medications: 02:48 Drug: KeFLEX 500 mg Route: PO; ea 03:00 Follow up: Response: No adverse reaction ea 02:51 Drug: Tylenol 325 mg Route: PO; ea 03:10 Follow up: Response: No adverse reaction ea Disposition: 03/14/20 03:00 Discharged to Home. Impression: Epilepsy and recurrent seizures, Urinary tract infection, site not specified. - Condition is Stable. - Discharge Instructions: Seizure, Adult, Urinary Tract Infection, Adult. - Prescriptions for Keflex 500 mg Oral Capsule - take 1 capsule by ORAL route every 12 hours for 10 days; 20 capsule. - Medication Reconciliation Form, Thank You Letter, Antibiotic Education, Prescription Opioid Use form. - Follow up: Narciso Campbell MD; When: 1 - 2 days; Reason: Recheck today's complaints, Re-evaluation by your physician. - Problem is new. - Symptoms have improved. Signatures: Dispatcher [employer] EDAK Kory Davila MD MD rn Antunez, Elena, RN RN ea Corrections: (The following items were deleted from the chart) 00:40 00:12 URIC ACID+C.LAB.BRZ ordered. EDMS EDMS 00:40 00:12 MAGNESIUM+C.LAB.BRZ ordered. EDMS EDMS 00:40 00:21 THYROID STIMULAT HORMONE+C.LAB.BRZ ordered. EDMS EDMS 00:40 00:21 T4 FREE+C.LAB.BRZ ordered. EDMS EDMS 02:59 02:57 ED course: Pt back to baseline, + UTI, breast fed baby, normal vitals, will dc rn home with keflex given safety profile, and urged to f/u with neurology. Mother confirms 2 other seizures, and this all seems like recurrent seizures/seizure disorder. No signs to indicate was overdose or drug related. . rn 03:12 03:00 03/14/2020 03:00 Discharged to Home. Impression: Epilepsy and recurrent seizures; ea Urinary tract infection, site not specified. Condition is Stable. Forms are Medication Reconciliation Form, Thank You Letter, Antibiotic Education, Prescription Opioid Use. Follow up: Narciso Campbell; When: 1 - 2 days; Reason: Recheck today's complaints, Re-evaluation by your physician. Problem is new. Symptoms have improved. rn
[2020-03-14 03:18] VITALS: TEMP 98; O2SAT 100
[2020-03-14 03:20] VITALS: BP 123/78
--- NOTE | 2020-03-14 16:56 | RAD REPORT ---
EXAM DESCRIPTION: CT - Head Brain Wo Cont - 03/14/2020 4:32 am CLINICAL HISTORY: 24-year-old female status post seizure. COMPARISON: None. TECHNIQUE: CT brain without contrast. This exam was performed according to our departmental dose opt imization program which includes use of automated exposure control, adjustment of the mA and/or kV ac cording to patient size and/or use of iterative reconstruction technique. FINDINGS: The ventricles, sulci, and cisterns are within normal limits. The mclain-white matter diff erentiation is preserved. There is no mass effect, midline shift, intra- or extra-axial fluid colle ction/acute hemorrhage. The osseous structures are unremarkable. The paranasal sinuses and mastoi d air cells are clear. IMPRESSION: No acute intracranial abnormalities. Electronically signed by: Suzan Olson MD 03/14/2020 12:41 AM CDT Work Due to temporary technical issues with the PACS/Fluency reporting system, reports are being signed by the in house radiologist without review as a courtesy to ensure prompt reporting. The interpreting r adiologist is fully responsible for the content of the report.
== END 2020-03-14 03:12 | disposition home or self-care (01) ==
LOC: ER 00:02
DX: N39.0 Urinary tract infection, site not specified (principal); E03.9 Hypothyroidism, unspecified
CPT/HCPCS: 36415; 70450; 80048; 80076; 80307; 80320; 80329; 81003; 82947; 83615; 83735; 84439; 84443; 84550; 85025; 85610; 85730; 93005; 99284

== ENCOUNTER 2021-05-05 12:59 | Emergency (ER) | payer OTHER ==
[2021-05-05] MEDS ORDERED: DICYCLOMINE HCL 10 MG CAP ONE (14:10)
[2021-05-05] MEDS ORDERED: ONDANSETRON 4 MG (ODT) TAB ONE (14:10)
[2021-05-05] MEDS ORDERED: DIPHENHYDRAMINE 50 MG/ML VIAL ONE (14:50)
[2021-05-05] MEDS ORDERED: NA CHLORIDE 0.9% 1,000 ML ONE (14:51)
[2021-05-05] MEDS ORDERED: PROMETHAZINE INJ 25 MG/ML AMP ONE ×2 (14:51→16:53)
[2021-05-05] MEDS ORDERED: FAMOTIDINE 20 MG/2 ML VIAL IV ONE (14:51)
[2021-05-05 14:54] LABS: Absolute Lymphocytes (CBC) 0.7 K/uL (0.7-4.9); Basophils % 0.4 % (0-1.3); Hematocrit 41.7 % (36.0-45.0); Lymphocytes % 6.1 % (15.3-44.8); MPV 9.1 fL (7.6-11.3); RBC Red Blood Cell Count 4.91 M/uL (3.86-4.86)
[2021-05-05] MEDS ORDERED: LORazepam 2 MG/ML VIAL ONE (14:55)
[2021-05-05 15:09] LABS: ALT/SGPT 22 U/L (12-78); AST/SGOT 14 U/L (15-37); Albumin 4.7 g/dL (3.4-5.0); Alkaline Phosphatase 78 U/L (45-117); BUN Blood Urea Nitrogen 9 mg/dL (7-18); Bicarbonate 20 mmol/L (21-32); Bilirubin Direct 0.1 mg/dL (0-0.2); Bilirubin Total 0.4 mg/dL (0.2-1.0); Glucose Level 137 mg/dL (74-106); Lipase 40 U/L (73-393); Potassium 3.6 mmol/L (3.5-5.1); Protein, Total 8.7 g/dL (6.4-8.2); Sodium Level 137 mmol/L (136-145)
[2021-05-05] MEDS ORDERED: ONDANSETRON 4 MG/2 ML VIAL ONE (15:14)
[2021-05-05 15:27] LABS: Urine Specific Gravity/Preg 1.025 (1.005-1.030)
--- NOTE | 2021-05-05 16:05 | RAD REPORT ---
EXAM DESCRIPTION: CTAbdomen Pelvis W Contrast - 05/05/2021 3:47 pm CLINICAL HISTORY: . ABD PAIN COMPARISON: No comparisons TECHNIQUE: Biphasic CT imaging of the abdomen and pelvis was performed with 100 ml non-ionic IV cont rast. All CT scans are performed using dose optimization technique as appropriate and may include automated exposure control or mA/KV adjustment according to patient size. FINDINGS: Lower chest: No acute abnormality. Liver: No acute abnormality or suspicious lesions. Biliary: No biliary ductal dilatation. Stomach: No significant focal abnormality. Duodenum: No significant focal abnormality. Pancreas: No significant abnormality. Spleen: No significant abnormality. Adrenal: No suspicious lesions. Kidney/ureter: No hydronephrosis. No renal calculi. Retroperitoneum: No retroperitoneal adenopathy. Vascular: No aneurysm. Bowel: No significant focal abnormality. No appendicitis identified. Peritoneum: No ascites or free air. Bladder: Bladder wall thickening and hyperenhancement. Reproductive: No adnexal masses. Bones: No acute fracture. Other: n/a IMPRESSION: Bladder wall thickening and hyperenhancement concerning for cystitis.
--- NOTE | 2021-05-05 16:45 | EDPHYS ---
Physician Documentation [facility] Name: Esther Royal Age: 25 yrs Sex: Female : 1995 Arrival Date: 05/05/2021 Time: 13:07 Bed 9 Private MD: ED Physician Kory Davila HPI: 05/05 13:45 This 25 yrs old Female presents to ER via Ambulatory with complaints of cp Vomiting. 13:45 The patient presents to the emergency department with nausea, with "dry heaves", cp vomiting, that is continuous, abdominal pain, of the mid abdomen. Onset: The symptoms/episode began/occurred yesterday. 13:45 Possible causes: antibiotics, macrolide, Zithromax, has been taking tylenol with cp codeine and recently ran out. 13:45 Associated signs and symptoms: Pertinent positives: abdominal pain, anorexia, Pertinent cp negatives: constipation, diarrhea, fever, GI bleeding, hematemesis. Severity of symptoms: in the emergency department the symptoms are unchanged despite home interventions. 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 - Social history:: Smoking status: Patient denies any tobacco usage or history of. ROS: 13:50 Constitutional: Negative for fever. cp 13:50 Abdomen/GI: Positive for abdominal pain, nausea and vomiting, anorexia, Negative for cp constipation, hematemesis, black/tarry stool, rectal bleeding. 13:50 Eyes: Negative for injury, pain, redness, and discharge. cp 13:50 ENT: Negative for drainage from ear(s), ear pain, sore throat, difficulty swallowing, difficulty handling secretions. 13:50 Cardiovascular: Negative for chest pain, palpitations. 13:50 Respiratory: Negative for cough, shortness of breath, wheezing. 13:50 Back: Negative for radiated pain. 13:50 Neuro: Negative for altered mental status, headache, weakness. 13:50 Psych: Positive for anxiety. 13:50 All other systems are negative. Exam: 13:55 Head/Face: Normocephalic, atraumatic. cp 13:55 Constitutional: The patient appears in no acute distress, alert, awake, non-diaphoretic, non-toxic, well developed, well nourished, anxious. 13:55 Eyes: Periorbital structures: appear normal, Conjunctiva: normal, no exudate, no injection, Sclera: no appreciated abnormality, Lids and lashes: appear normal, bilaterally. 13:55 ENT: External ear(s): are unremarkable, Nose: is normal, Mouth: Lips: moist, Oral mucosa: moist, Posterior pharynx: Airway: no evidence of obstruction, patent. 13:55 Chest/axilla: Inspection: normal. 13:55 Cardiovascular: Rate: normal, Rhythm: regular. 13:55 Respiratory: the patient does not display signs of respiratory distress, Respirations: normal, no use of accessory muscles, no retractions, labored breathing, is not present, Breath sounds: are clear throughout, no decreased breath sounds, no stridor, no wheezing. 13:55 Abdomen/GI: Inspection: abdomen appears normal, Bowel sounds: active, all quadrants, Palpation: soft, in all quadrants, moderate abdominal tenderness, in the mid abdomen, rebound tenderness, is not appreciated, involuntary guarding, is not appreciated. 13:55 Back: CVA tenderness, is absent. Vital Signs: 13:25 BP 146 / 92; Pulse 75; Resp 17; Temp 98.4; Pulse Ox 100% ; Weight 74.84 kg; Height 5 jl7 ft. 5 in. (165.10 cm); Pain 10/10; 14:43 BP 145 / 81; Pulse 68; Resp 20; Pulse Ox 99% on R/A; tw2 16:55 BP 138 / 59; Pulse 72; Resp 17; Pulse Ox 100% on R/A; tw2 13:25 Body Mass Index 27.46 (74.84 kg, 165.10 cm) jl7 MDM: 13:34 Patient medically screened. cp 15:00 Differential diagnosis: gastritis, cholecystitis, pancreatitis, appendicitis, viral cp gastroenteritis, gastroenteritis. 16:44 Data reviewed: vital signs, nurses notes, lab test result(s), radiologic studies, CT cp scan. 16:44 Counseling: I had a detailed discussion with the patient and/or guardian regarding: the cp historical points, exam findings, and any diagnostic results supporting the discharge/admit diagnosis, lab results, radiology results, to return to the emergency department if symptoms worsen or persist or if there are any questions or concerns that arise at home. Response to treatment: the patient's symptoms have markedly improved after treatment, Nausea and pain markedly improved, vomiting resolved. Will discharge to home for continued monitoring. 05/05 14:08 Order name: Basic Metabolic Panel; Complete Time: 16:13 cp 05/05 16:13 Interpretation: Normal except: CO2 20; GLUC 137. cp 05/05 14:08 Order name: CBC with Diff; Complete Time: 15:01 cp 05/05 16:14 Interpretation: Normal except: WBC 12.10; RBC 4.91; LYM% 6.1; MN% 2.8; MARTHA% 90.7; NEUT cp A 11.0. 05/05 14:08 Order name: Hepatic Function; Complete Time: 16:13 cp 05/05 14:08 Order name: Lipase; Complete Time: 16:13 cp 05/05 14:57 Order name: Urine --Ancillary (enter results) bd 05/05 14:58 Order name: Urine --Ancillary; Complete Time: 16:13 EDMS 05/05 15:04 Order name: CT Abd/Pelvis - IV Contrast Only; Complete Time: 16:13 cp 05/05 13:29 Order name: Urine Dipstick-Ancillary (obtain specimen); Complete Time: 13:44 cp 05/05 13:29 Order name: Urine Test (obtain specimen); Complete Time: 13:44 cp 05/05 13:35 Order name: PO challenge: 20 minutes after giving medications; Complete Time: 15:30 cp 05/05 14:08 Order name: IV Saline Lock; Complete Time: 14:42 cp 05/05 14:08 Order name: Labs collected and sent; Complete Time: 14:42 cp 05/05 16:20 Order name: PO challenge; Complete Time: 16:53 cp Administered Medications: 13:48 Drug: Ondansetron 4 mg Route: PO; tw2 14:04 Follow up: Response: No adverse reaction; Nausea unchanged; Nausea unchanged, provider tw2 notified. 14:04 Drug: Bentyl (dicyclomine) 20 mg Route: PO; tw2 14:29 Follow up: Response: No adverse reaction; Pain is unchanged, physician notified tw2 14:27 Not Given (Physician Discretion): Phenergan (promethazine) 12.5 mg IVP once cp 14:27 Not Given (Physician Discretion): Benadryl (diphenhydrAMINE) 25 mg IVP once cp 14:30 Drug: Pepcid (famotidine) 20 mg Route: IVP; Site: right antecubital; oh 16:48 Follow up: Response: No adverse reaction tw2 14:40 Drug: NS 0.9% 1000 ml Route: IV; Rate: 1 bolus; Site: right antecubital; tw2 15:55 Follow up: Response: No adverse reaction; IV Status: Completed infusion; IV Intake: tw2 1000ml 14:42 Drug: Ativan (LORazepam) 0.5 mg Route: IVP; Site: right antecubital; tw2 16:47 Follow up: Response: No adverse reaction; Anxiety decreased tw2 14:51 Drug: Zofran (Ondansetron) 4 mg Route: IVP; Site: right antecubital; oh 16:27 Follow up: Response: No adverse reaction; Nausea unchanged tw2 16:30 Drug: Phenergan (promethazine) 12.5 mg Route: IVP; Site: right antecubital; tw2 16:53 Follow up: Response: No adverse reaction; Nausea is decreased tw2 16:45 Drug: Rocephin (cefTRIAXone) 1 grams Route: IV; Rate: calculated rate; Site: right tw2 antecubital; 16:57 Follow up: Response: No adverse reaction; IV Status: Completed infusion; IV Intake: [id number] 17:02 Follow up: Response: No adverse reaction; IV Status: Completed infusion tw2 Point of Care Testing: Urine : 13:45 hCG Reading: Negative; oh Disposition: 18:02 Co-signature as Attending Physician, Kory Davila MD I agree with the assessment and rn plan of care. Attestation: The patient's history, exam findings, diagnostics, and a summary of any interventions or procedures was reviewed in detail with Yahir JACOBSON. Disposition Summary: 05/05/21 16:44 Discharge Ordered Location: Home cp Problem: new cp Symptoms: have improved cp Condition: Stable cp Diagnosis - Nausea with vomiting, unspecified cp - Acute cystitis cp Followup: cp - With: Private Physician - When: 2 - 3 days - Reason: Worsening of condition Discharge Instructions: - Nausea and Vomiting, Adult cp - Urinary Tract Infection, Adult cp - Discharge Summary Sheet tw2 Forms: - Medication Reconciliation Form cp - Work release form tw2 - Thank You Letter cp - Antibiotic Education cp - Prescription Opioid Use cp Prescriptions: - promethazine 25 mg Oral Tablet - take 1 tablet by ORAL route every 6 hours As needed; 20 tablet; Refills: 0, cp Product Selection Permitted - Bactrim DS 800-160 mg Oral Tablet - take 1 tablet by ORAL route every 12 hours for 7 days; 14 tablet; Refills: 0, cp Product Selection Permitted Signatures: Dispatcher [employer] EDMS Kory Davila MD MD rn Page, Corey, PA PA cp Kristin Bonilla RN RN tw2 Tara Rebolledo RN RN jl7 Reuben Younger RN RN oh Corrections: (The following items were deleted from the chart) 14:59 14:10 Abdomen Pelvis W Con+CT.RAD.BRZ ordered. EDMS EDMS 15:02 15:02 Normal except: WBC 12.10; RBC 4.91. cp cp 16:14 15:02 Normal except: WBC 12.10; RBC 4.91; LYM% 6.1; MN% 2.8; MARTAH% 90.7. cp cp :05/04 13:55 Constitutional: The patient appears in no acute distress, alert, awake, cp non-diaphoretic, non-toxic, well developed, well nourished, anxious, cp 05/05 16:05/04 13:55 Head/Face: Normocephalic, atraumatic. cp cp 05/05 16:05/04 13:55 Eyes: Periorbital structures: appear normal, Conjunctiva: normal, no cp exudate, no injection, Sclera: no appreciated abnormality, Lids and lashes: appear normal, bilaterally, cp 05/05 16:05/04 13:55 ENT: External ear(s): are unremarkable, Nose: is normal, Mouth: Lips: cp moist, Oral mucosa: moist, Posterior pharynx: Airway: no evidence of obstruction, patent, cp 05/05 16:05/04 13:55 Chest/axilla: Inspection: normal, cp cp 05/05 16:57 05/04 13:55 Cardiovascular: Rate: normal, Rhythm: regular, cp cp 05/05 16:57 05/04 13:55 Respiratory: the patient does not display signs of respiratory distress, cp Respirations: normal, no use of accessory muscles, no retractions, labored breathing, is not present, Breath sounds: are clear throughout, no decreased breath sounds, no stridor, no wheezing, cp 05/05 16:57 05/04 13:55 Abdomen/GI: Inspection: abdomen appears normal, Bowel sounds: active, all cp quadrants, Palpation: soft, in all quadrants, moderate abdominal tenderness, in the mid abdomen, rebound tenderness, is not appreciated, involuntary guarding, is not appreciated, cp 05/05 16:57 05/04 13:55 Back: CVA tenderness, is absent, cp cp
--- NOTE | 2021-05-05 16:45 | ER ---
Nurse's Notes [facility] Name: Esther Royal Age: 25 yrs Sex: Female : 1995 Arrival Date: 05/05/2021 Time: 13:07 Bed 9 Private MD: Diagnosis: Nausea with vomiting, unspecified;Acute cystitis Presentation: 05/05 13:25 Chief complaint: Patient states: Took 1000 mg Zithromax last night, did not eat with it jl7 and have been throwing up with sever abdominal pain since about an hour after and hasn't stopped. Coronavirus screen: Vaccine status: Patient reports being unvaccinated. Ebola Screen: No symptoms or risks identified at this time. Initial Sepsis Screen: Does the patient meet any 2 criteria? No. Patient's initial sepsis screen is negative. Does the patient have a suspected source of infection? No. Patient's initial sepsis screen is negative. Risk Assessment: Do you want to hurt yourself or someone else? Patient reports no desire to harm self or others. Onset of symptoms was May 04, 2021. 13:25 Method Of Arrival: Ambulatory [facility] 13:25 Acuity: PAVEL 3 jl7 Triage Assessment: 13:27 General: Appears in no apparent distress. uncomfortable, ill, Behavior is cooperative, jl7 anxious. Pain: Complains of pain in right upper quadrant and right lower quadrant Pain currently is 10 out of 10 on a pain scale. GI: Reports nausea, vomiting. [employer]: 13:27 LMP 04/09/2021 jl Historical: - Allergies: 13:27 No Known Allergies; jl7 - Home Meds: 13:27 levothyroxine oral [Active]; jl7 - PMHx: 13:27 Hypothyroidism; jl7 - PSHx: 13:27 None; jl7 - Immunization history:: Adult Immunizations not up to date, Client reports having NOT received the Covid vaccine. - Social history:: Smoking status: Patient denies any tobacco usage or history of. Screenin:49 Abuse screen: Denies threats or abuse. Denies injuries from another. Nutritional tw2 screening: No deficits noted. Tuberculosis screening: No symptoms or risk factors identified. Fall Risk None identified. Assessment: 13:35 General: Appears uncomfortable, Behavior is calm, cooperative, Reports feeling ill for oh 1-2 days, nausea, vomiting diarrhea after antibiotics use. GI: Reports lower abdominal pain. 14:04 Reassessment: Patient and/or family updated on plan of care and expected duration. Pain tw2 level reassessed. Patient is alert, oriented x 3, equal unlabored respirations, skin warm/dry/pink. pt states " i still feel nauseous and like i am going to " pt pacing around the room. VS stable, pt encouraged to take slow, deep breaths and have a seat in the exam chair at this time. emesis basis given. provider notified. pt reports taking the antibiotic for a STD. GI: Abdomen is flat. 14:30 Reassessment: upon return to exam room pt states "this feels like i am withdrawing from tw2 codeine like i did before when i had withdrawals" provider notified. pt reports taking them for a "bad tooth". 14:42 Reassessment: pt states "should i do the cat scan if i think it is withdrawals", tw2 provider notified and at bedside at this time discussing with pt. 15:36 Reassessment: pt taken to CT via w/c with KEZIA Mccoy at this time. tw2 17:02 Reassessment: Patient appears in no apparent distress at this time. Patient and/or tw2 family updated on plan of care and expected duration. Pain level reassessed. Patient is alert, oriented x 3, equal unlabored respirations, skin warm/dry/pink. Patient states feeling better. Patient states symptoms have improved. Vital Signs: 13:25 BP 146 / 92; Pulse 75; Resp 17; Temp 98.4; Pulse Ox 100% ; Weight 74.84 kg; Height 5 jl7 ft. 5 in. (165.10 cm); Pain 10/10; 14:43 BP 145 / 81; Pulse 68; Resp 20; Pulse Ox 99% on R/A; tw2 16:55 BP 138 / 59; Pulse 72; Resp 17; Pulse Ox 100% on R/A; tw2 13:25 Body Mass Index 27.46 (74.84 kg, 165.10 cm) jl7 ED Course: 13:07 Patient arrived in ED. mr 13:27 Triage completed. jl7 13:27 Arm band placed on right wrist. jl7 13:28 Bed in low position. Call light in reach. tw2 13:29 [facility] Reid [facility]. cp 13:29 Kory Davila MD is Attending Physician. cp 14:39 Inserted saline lock: 18 gauge in right antecubital area, using aseptic technique. tw2 Blood collected. 14:59 Reuben Younger, GABRIELLA is Primary Nurse. oh 15:26 Urine --Ancillary (enter results) Sent. oh 15:47 CT Abd/Pelvis - IV Contrast Only In Process Unspecified. EDMS 16:54 No provider procedures requiring assistance completed. tw2 17:02 IV discontinued, intact, bleeding controlled, No redness/swelling at site. Pressure tw2 dressing applied. Administered Medications: 13:48 Drug: Ondansetron 4 mg Route: PO; tw2 14:04 Follow up: Response: No adverse reaction; Nausea unchanged; Nausea unchanged, provider tw2 notified. 14:04 Drug: Bentyl (dicyclomine) 20 mg Route: PO; tw2 14:29 Follow up: Response: No adverse reaction; Pain is unchanged, physician notified tw2 14:27 Not Given (Physician Discretion): Phenergan (promethazine) 12.5 mg IVP once cp 14:27 Not Given (Physician Discretion): Benadryl (diphenhydrAMINE) 25 mg IVP once cp 14:30 Drug: Pepcid (famotidine) 20 mg Route: IVP; Site: right antecubital; oh 16:48 Follow up: Response: No adverse reaction tw2 14:40 Drug: NS 0.9% 1000 ml Route: IV; Rate: 1 bolus; Site: right antecubital; tw2 15:55 Follow up: Response: No adverse reaction; IV Status: Completed infusion; IV Intake: tw2 1000ml 14:42 Drug: Ativan (LORazepam) 0.5 mg Route: IVP; Site: right antecubital; tw2 16:47 Follow up: Response: No adverse reaction; Anxiety decreased tw2 14:51 Drug: Zofran (Ondansetron) 4 mg Route: IVP; Site: right antecubital; oh 16:27 Follow up: Response: No adverse reaction; Nausea unchanged tw2 16:30 Drug: Phenergan (promethazine) 12.5 mg Route: IVP; Site: right antecubital; tw2 16:53 Follow up: Response: No adverse reaction; Nausea is decreased tw2 16:45 Drug: Rocephin (cefTRIAXone) 1 grams Route: IV; Rate: calculated rate; Site: right tw2 antecubital; 16:57 Follow up: Response: No adverse reaction; IV Status: Completed infusion; IV Intake: [id number] 17:02 Follow up: Response: No adverse reaction; IV Status: Completed infusion tw2 Point of Care Testing: Urine : 13:45 hCG Reading: Negative; oh Intake: 15:55 IV: 1000ml; Total: 1000ml. tw2 16:57 IV: 10ml; Total: 1010ml. tw2 Outcome: 16:44 Discharge ordered by . law 17:02 Discharged to home ambulatory. tw2 17:02 Condition: stable 17:02 Discharge instructions given to patient, Instructed on discharge instructions, follow up and referral plans. medication usage, Demonstrated understanding of instructions, follow-up care, medications, Prescriptions given X 2. 17:02 Patient left the ED. tw2 Signatures: Dispatcher [employer] EDMI Guerda Escalante Corey, INDIRA PA Kristin Bell, RN RN tw2 Tara Rebolledo RN RN jl7 Reuben Younger RN RN oh
[2021-05-05] MEDS ORDERED: CEFTRIAXONE/SWI 1gm 1 GM/10 ML SYR ONE (16:53)
[2021-05-05 18:04] VITALS: TEMP 98.4
[2021-05-05 18:06] VITALS: BP 138/59; O2SAT 100
[2021-05-07 16:00] LABS: Urine Blood TRACE (Negative); Urine Glucose NEGATIVE (Negative); Urine Protein 2+ (Negative); Urine Specific Gravity 1.025 (1.005-1.030); Urine pH 7.5 (5.0-7.0)
== END 2021-05-05 17:02 | disposition home or self-care (01) ==
LOC: ER 12:59
DX: N30.00 Acute cystitis without hematuria (principal); E03.9 Hypothyroidism, unspecified
CPT/HCPCS: 96361; 85025; 80048; 36415; 81025; 80076; 81003; 83690; 74177; 96375; 96374; 99284; Q9967; J2550; J0696; J7030; J2405; J1200

== ENCOUNTER 2022-06-01 21:32 | Emergency (ER) | payer OTHER ==
--- OUTSIDE RECORDS SUMMARY | 2022-06-01 21:36 | XMS REPORT | Continuity of Care Document ---
:1995 Author Organization [facility] t Address [address] [place], [place] Care Team Providers Name Role Phone PCP, PATIENT DOES NOT HAVE A Primary Care Physician Unavaila ble LILLIAN LITTLE Attending Clinician Unavailable Lillian Little MD Attending Clinician 2, [facility] Attending Clinician Unavailable Doctor Unassigned, [place] Attending Clinician Unavailable Vy Ordaz Attending Clinician Lab, Adc Fam Pob I Attending Clinician Unavailable Greta Bliss Attending Clinician GRETA SANCHEZ Attending Clinician Unavailable LILLIAN LITTLE Admitting Clinician Unavailable Payers Payer Name Policy Type Policy Number Effective Date Expiration Date [facility] [id number] 2020 [facility] MEDICAID 00:00:00 Problems Condition Condition Condition Status Onset Resolution Last Treating Co mments Source Name Details Category Date Date Treatment Clinician Date Acquired Acquired Disease Active Unive rs hypothyroi hypothyroi 6-17 it y of dism dism 00:00: [place] 00 Medical Branch Allergies, Adverse Reactions, Alerts Allergy Allergy Status Severity Reaction(s) Onset Inactive Treating Comm ents Source Name Type Date Date Clinician NO KNOWN Drug Active [facility] Social History Social Habit Start Date Stop Date Quantity Comments Source Exposure to Not sure [facility] SARS-CoV-2 (event) Medica l Branch Tobacco use and 2020-08-28 2020-08-28 [facility] exposure 00:00:00 00:00:00 Medical Branch Sex [birth year] [facility] 00:00:00 00:00:00 Medical Branch Smoking Status Start Date Stop Date Source Never smoker [facility] Unknown if ever smoked [facility] Medications Ordered Filled Start Stop Current Ordering Indication Dosage Frequency Signature Comments Components Source Medication Medication Date Date Medication? Clinician (SIG) Name Name levothyroxi Yes [id number] 50ug Take 1 Univers ne 50 mcg 2-12 tablet by ity o f tablet 00:00: mouth [place] 00 every Medical morning. Branch levothyroxi Yes [id number] 50ug Take 1 Univers ne 50 mcg 2-12 tablet by ity o f tablet 00:00: mouth [place] 00 every Medical morning. Branch levothyroxi Yes [id number] 50ug Take 1 Univers ne 50 mcg 2-12 tablet by ity o f tablet 00:00: mouth [place] 00 every Medical morning. Branch levothyroxi Yes [id number] 50ug Take 1 Univers ne 50 mcg 2-12 tablet by ity o f tablet 00:00: mouth [place] 00 every Medical morning. [place] Levothyroxi 2020- No 1{capsu Take 1 Univers ne 25 mcg 2-08 02-08 le} capsule by ity of capsule 07:12: 00:00 mouth [place] 35 :00 daily. [facility] Levothyroxi 2020- No 1{capsu Take 1 Univers ne 25 mcg 2-08 02-08 le} capsule by ity of capsule 07:12: 00:00 mouth [place] 35 :00 daily. [facility] Branch Levothyroxi 2020- No 1{capsu Take 1 Univers ne 25 mcg 2-08 02-08 le} capsule by ity of capsule 07:12: 00:00 mouth [place] 35 :00 daily. [facility] Branch Levothyroxi 2020- No 1{capsu Take 1 Univers ne 88 mcg 08-28 le} capsule by ity of capsule 21:25: 00:00 mouth [place] 16 :00 daily. [facility] Levothyroxi 2020- No 1{capsu Take 1 Univers ne 88 mcg 08-28 le} capsule by ity of capsule 21:25: 00:00 mouth [place] 16 :00 daily. Medical Branch Levothyroxi 202-0 2021- No 1{capsu Take 1 Univers ne 88 mcg 1-13 -13 le} capsule by ity of capsule 21:25: 00:00 mouth [place] 16 :00 daily. Medical Branch SERTraline 2020-0 Yes Univers 100 mg 1-08 ity of tablet 00:00: [place] 00 Medical Branch SERTraline 2020-0 Yes Univers 100 mg 1-08 ity of tablet 00:00: [place] 00 Medical Branch SERTraline 2020-0 Yes Univers 100 mg 1-08 ity of tablet 00:00: [place] 00 Medical Branch SERTraline 2020-0 Yes Univers 100 mg 1-08 ity of tablet 00:00: [place] 00 Medical Branch SERTraline 2020-0 Yes Univers 100 mg 1-08 ity of tablet 00:00: [place] 00 Medical Branch SERTraline 2020-0 Yes Univers 100 mg 1-08 ity of tablet 00:00: [place] 00 Medical Branch SERTraline 2020-0 Yes Univers 100 mg 1-08 ity of tablet 00:00: [place] 00 Medical Branch SERTraline 2020-0 Yes Univers 100 mg 1-08 ity of tablet 00:00: [place] 00 Medical Branch levothyroxi 2020-0 Yes Univer s ne 25 mcg 1-07 ity of tablet 00:00: [place] 00 Medical Branch levothyroxi 2020-0 Yes Univer s ne 25 mcg 1-07 ity of tablet 00:00: [place] 00 Medical Branch levothyroxi 2020-0 Yes Univer s ne 25 mcg 1-07 ity of tablet 00:00: [place] 00 Medical Branch levothyroxi 202-0 2021- No Unive rs ne 25 mcg 1-07 -12 ity of tablet 00:00: 00:00 [place] 00 :00 Medical Branch levothyroxi 202-0 1- No Unive rs ne 25 mcg 1-07 -12 ity of tablet 00:00: 00:00 [place] 00 :00 Medical Branch Levothyroxi 2018-08 Yes 1{capsu Take 1 U nivers ne 88 mcg 0-07 le} capsule by ity of capsule 21:04: mouth [place] 43 daily. Medical Branch Levothyroxi 2018-08 Yes 1{capsu Take 1 U nivers ne 88 mcg 0-07 le} capsule by ity of capsule 21:04: mouth [place] 43 daily. Medical Branch Levothyroxi 2018-08 Yes 1{capsu Take 1 U nivers ne 88 mcg 0-07 le} capsule by ity of capsule 21:04: mouth [place] 43 daily. Medical Branch Levothyroxi 2018-08 Yes 1{capsu Take 1 U nivers ne 88 mcg 0-07 le} capsule by ity of capsule 21:04: mouth [place] 43 daily. Medical Branch Levothyroxi 2018-08 Yes 1{capsu Take 1 U nivers ne 88 mcg 0-07 le} capsule by ity of capsule 21:04: mouth [place] 43 daily. Medical Branch mupirocin 2 2018-08 Yes [id number] Apply to Univers % ointment 0-07 [id number] area(s) 3 it y of 00:00: (three) [place] 00 times Medical daily. Branch mupirocin 2 2018-08 Yes [id number] Apply to Univers % ointment 0-07 [id number] area(s) 3 it y of 00:00: (three) [place] 00 times Medical daily. Branch mupirocin 2 2018-08 Yes [id number] Apply to Univers % ointment 0-07 [id number] area(s) 3 it y of 00:00: (three) [place] 00 times Medical daily. Branch mupirocin 2 2018-08 Yes [id number] Apply to Univers % ointment 0-07 [id number] area(s) 3 it y of 00:00: (three) [place] 00 times Medical daily. Branch mupirocin 2 2018-08 Yes [id number] Apply to Univers % ointment 0-07 [id number] area(s) 3 it y of 00:00: (three) [place] 00 times Medical daily. Branch mupirocin 2 2018-08- No [id number] Apply to Univers % ointment 0-07 01-13 [id number] area(s) 3 i ty of 00:00: 00:00 (three) [place] 00 :00 times Medical daily. Branch mupirocin 2 2018-08- No [id number] Apply to Univers % ointment 0-07 01-13 [id number] area(s) 3 i ty of 00:00: 00:00 (three) [place] 00 :00 times Medical daily. Branch mupirocin 2 2018-08- No [id number] Apply to Univers % ointment 08-28 [id number] area(s) 3 i ty of 00:00: 00:00 (three) [place] 00 :00 times Medical daily. Branch ibuprofen 2015-08 Yes 800mg Take 1 Unive rs (MOTRIN) 0-23 tablet by ity of 800 mg 00:00: mouth [place] tablet 00 every 6 Medical (six) Branch hours as needed for Pain unrelieved by Tylenol. ibuprofen 2015-08- No 800mg Take 1 Univ ers (MOTRIN) 0- tablet by ity o f 800 mg 00:00: 00:00 mouth [place] tablet 00 :00 every 6 Medical (six) Branch hours as needed for Pain unrelieved by Tylenol. ibuprofen 2015-08- No 800mg Take 1 Univ ers (MOTRIN) 008-28 tablet by ity o f 800 mg 00:00: 00:00 mouth [place] tablet 00 :00 every 6 Medical (six) Branch hours as needed for Pain unrelieved by Tylenol. ibuprofen 2015-08- No 800mg Take 1 Univ ers (MOTRIN) 008-28 tablet by ity o f 800 mg 00:00: 00:00 mouth [place] tablet 00 :00 every 6 Medical (six) Branch hours as needed for Pain unrelieved by Tylenol. Immunizations Ordered Filled Immunization Date Status Comments [facility] Immunization Name Name Td 2019-05-22 Completed University of 00:00:00 [facility] Td 2019-05-22 Completed University of 00:00:00 [facility] Td 2019-05-22 Completed University of 00:00: [facility] Td 2019-05-22 Completed University of 00:00: [facility] Td 2019-05-22 Completed University of 00:00:00 [facility] Td 2019-05-22 Completed University of 00:00:00 [facility] Td 2019-05-22 Completed University of 00:00:00 [facility] Td 2019-05-22 Completed University of 00:00:00 [facility] Td 2019-05-22 Completed University of 00:00:00 [facility] Td 2019-05-22 Completed University of 00:00:00 [facility] Td 2019-05-22 Completed University 00:00:00 [place] [facility] Td 2019-05-22 Completed University of 00:00:00 [facility] Branch Td 2019-05-22 Completed University 00:00:00 [facility] Vital Signs Vital Name Observation Time Observation Value Comments Source Systolic blood 2020-12-31 21:25:00 108 mm[Hg] Univer sity of pressure [place] [facility] Diastolic blood 2020-12-31 21:25:00 67 mm[Hg] Unive rsity of pressure [place] [facility] Heart rate 2020-12-31 21:25:00 70 /min Universi ty of [place] [facility] Body weight 2020-12-31 21:25:00 77.565 kg Universi ty of [place] [facility] BMI 2020-12-31 21:25:00 28.46 kg/m2 Universi ty of [place] [facility] Oxygen saturation in 2020-12-31 21:25:00 97 /min University of Arterial blood by [employer]! Pulse oximetry Branch Systolic blood 2020-08-28 21:23:00 101 mm[Hg] Univer sity of pressure [place] [facility] Diastolic blood 2020-08-28 21:23:00 62 mm[Hg] Unive rsity of pressure [place] [facility] Heart rate 2020-08-28 21:23:00 74 /min Universi ty of [place] [facility] Respiratory rate 2020-08-28 21:23:00 18 /min Univ ersity of [place] [facility] Body height 2020-08-28 21:23:00 165.1 cm Universi ty of [place] [facility] Body weight 2020-08-28 21:23:00 75.388 kg Universi ty of [place] [facility] BMI 2020-08-28 21:23:00 27.66 kg/m2 Universi ty of [place] [facility] Oxygen saturation in 2020-08-28 21:23:00 98 /min University of Arterial blood by [employer] Pulse oximetry Branch Procedures Procedure Date / Time Performed Performing Clinician [facility] REFERRAL- 2020-08-02 06:01:00 Doctor Unassigned, No Univer [facility] REQUEST/RESPONSE Name Medical Branch Encounters Start End Encounter Admission Attending Care Care Encounter Source Date/Time Date/Time Type Type Clinicians Facility Department ID 2021-07-08 2021-07-08 Outpatient [facility] [id number] Univers 16:00:00 16:00:00 [facility] 2021-05-07 2021-05-07 Telephone [facility] [id number]..[id number] Univers 00:00:00 00:00:00 [facility] [id number] it y of [place] [id number] Valdemar as Pedrito?Blea [phone] Me dicdamaris [address] Medical Office Building 2021-01-15 2021-01-15 Outpatient [facility] [id number] Univers 15:00:00 15:00:00 [facility] 2021-01-01 2021-01-01 Outpatient R [facility] [id number] Univers 13:15:00 13:15:00 ity [facility] 2020-12-31 2020-12-31 Office [facility] [id number] Univers 16:19:22 16:48:55 Visit [facility] [id number] i [id number] [phone] [address] 2020-12-31 2020-12-31 Outpatient [facility] [id number] Univers 16:30:00 16:30:00 [facility] 2020-09-27 2020-09-27 Patient [facility] [id number] Univers 00:00:00 00:00:00 Secure Msg [facility] [id number] ity [id number] [phone] Nd dic[address] 2020-09-25 2020-09-25 Outpatient [facility] [id number] Univers 14:45:00 14:45:00 [facility] 2020-09-25 2020-09-25 [employer] 2, Adc Lab [facility] [id number] Univers 13:57:34 14:12:34 Visit Lillian Little [id number] it[id number] [phone] Nd dical [facility] [address] [facility] 2020-09-23 2020-09-23 Outpatient [facility] [id number] Univers 16:02:47 23:59:00 [facility] ity [facility] 2020-08-29 2020-08-29 Outpatient R [facility] [id number] Univers 09:45:00 09:45:00 [facility] 2020-08-28 2020-08-28 Office [facility] [id number] Univers 15:06:19 16:11:56 Visit Lillian Byrnes [id number] i [id number] [phone] [facility] [address] [facility] 2020-08-28 2020-08-28 Outpatient R [facility] [id number] Univers 15:00:00 15:00:00 [facility] 2020-08-17 2020-08-17 Outpatient R [facility] [id number] Univers 11:40:00 11:40:00 ity [facility] 2020-08-02 2020-08-02 Orders Doctor MAURIZIO 1.2.840.114 [id number] Univers 00:00:00 00:00:00 Only Unassigned, CHIKIS [id number] ity of [place] [facility] [id number] Valdemar as [phone] [address] 2020-02-26 2020-02-26 Letter [facility] [id number] 00:00:00 00:00:00 (Out) Vy Byrnes [id number] [place] [id number] Professio [phone] [address] 2020-02-26 2020-02-26 [facility] 1.2.840.114 [id number] 00:00:00 00:00:00 (Out) Vy [place] [id number] [place] [id number] Professio [phone] [address] 2020-02-26 2020-02-26 [facility] 1.2.840.114 [id number] Univers 00:00:00 00:00:00 (Out) Vy [place] [id number] i ty [place] [id number] [phone] [address] 2020-02-26 2020-02-26 [facility] 1.2.840.114 [id number] Univers 00:00:00 00:00:00 (Out) Vy Soniya [id number] i [place] [id number] [place] [phone] [address] 2020-02-23 2020-02-23 Telephone MAURIZIO Dobbs 1.2.840.114 [id number] 00:00:00 00:00:00 Vy CHIKIS [id number] HOSPITAL [id number] [phone] [facility] 2020-02-23 2020-02-23 Telephone MAURIZIO Dobbs 1.2.840.114 [id number] Univers 00:00:00 00:00:00 Vy CHIKIS [id number] it y of HOSPITAL [id number] Valdemar as [phone] [address] 2020-02-22 2020-02-22 Laboratory Lab, [facility] 1.2.840.114 [id number] 09:46:55 10:06:55 Only Fam Pob I Health [id number] [place] [id number] Professio [phone] [place] [address] [address] 2020-02-22 2020-02-22 Laboratory Lab, [facility] Fam Pob I [facility] 1.2. 840.114 [id number] [facility] 09:46:55 10:06:55 Only Anene, Greta Health [id number] ity of [place] [id number] Valdemar as Professio [phone] [address] Office Building One 2020-02-22 2020-02-22 Outpatient R LA[facility] [id number] Univers 09:20:00 09:20:00 GRETA junior of [facility] Results Test Description Test Time Test Comments Results Result Comments Source SARS-COV2/RT-PCR ([facility]) 2020-03-12 10:34:00 Test Item Value Reference Range Interpretation Comme nts SARS-COV2/RT-PCR (test code = 2775358) Negative Not Detected, N egative, See external report for linked test SARS-COV-2 PERFORMING LAB (test code = [facility] [id number]) Negative result for this test determines that SARS-CoV-2 RNA was not present in the specimen above the Limit of Detection (LOD). However, Negative results do not preclude SARS-CoV-2 infection and should not be used as the sole basis for treatment or patient management decisions. Negative results must be combined with clinical observations, patient history, and epidemiological information. A false negative result may occur if a specimen is improperly collected, transported or handled. A false negative result should be considered if patient's recent exposures or clinical presentation indicate that COVID-19 (SARS-CoV-2) is likely and diagnostic tests for other causes of illness are negative. Re-testing should be considered in cases of suspected false negatives.The limit of detection for this assay is 800 copies/mL.This SARS CoV-2 test is a real-time RT-PCR test intended for the qualitative detection of nucleic acid from SARS-CoV-2 in a nasopharyngeal swab specimen collected from individuals suspected of COVID-19 by their healthcare provider.This test has not been Food and Drug Administration (FDA) cleared or approved. This is a modified version of an approved Emergency Use Authorization (EUA) and is in the process of review by the FDA. Once authorized by the FDA, the issued EUA will be effective until the declaration that circumstances exist justifying the authorization of the emergency use ofin vitro diagnostic tests for detection and/or diagnosis of COVID-19 is terminated under Section 564(b)(2) of the Act or the EUA is revoked under Section 564(g) of the Act.Fact Sheet for Healthcare Prov iders:https://www.Md[employer]/sites/default/files/product/documents/Fact_Sheet_HC _Xazzlxkgu_Atqf_EAUZ-ZbP-5.pdfFact Sheet for Healthcare Patients:https://www.Md[employer]/sites/default/files/product/docume nts/Kjhm_Gcnbe_Ixvfrfwx_Fwyr_ICEH-LcN-9.pdfPerforming Laboratory:[facility] [place] [address]
--- NOTE | 2022-06-01 21:59 | EDPHYS ---
Physician Documentation [facility] Name: Esther Royal Age: 26 yrs Sex: Female : 1995 Arrival Date: 06/01/2022 Time: 21:41 Bed DIS5 Private MD: ED Physician Kory Davila HPI: 06/01 21:56 This 26 yrs old Female presents to ER via Unassigned with complaints of Pain rn With Urination. 21:56 The patient presents with a possible exposure to a sexually transmitted disease, rn chlamydia. Onset: The symptoms/episode began/occurred at an unknown time. Modifying factors: The symptoms are alleviated by nothing, the symptoms are aggravated by sexual intercourse, urinating. Associated signs and symptoms: Pertinent positives: dysuria, Pertinent negatives: fever, vaginal bleeding, vaginal discharge. Severity of symptoms: At their worst the symptoms were mild, in the emergency department the symptoms are unchanged. The patient has experienced similar episodes in the past. The patient has not recently seen a physician. Pt reports unprotected sex with partner who tested + for chlamydia recently. Now with dysuria, no discharge. . - Family history:: not pertinent. - Hospitalizations: : No recent hospitalization is reported. ROS: 21:56 Constitutional: Negative for fever, chills, and weight loss, Eyes: Negative for injury, rn pain, redness, and discharge, Cardiovascular: Negative for chest pain, palpitations, and edema, Respiratory: Negative for shortness of breath, cough, wheezing, and pleuritic chest pain, Abdomen/GI: Negative for abdominal pain, nausea, vomiting, diarrhea, and constipation, Back: Negative for injury and pain, : + dysuria MS/Extremity: Negative for injury and deformity, Skin: Negative for injury, rash, and discoloration, Neuro: Negative for headache, weakness, numbness, tingling, and seizure. Exam: 21:56 Constitutional: This is a well developed, well nourished patient who is awake, alert, rn and in no acute distress. Head/Face: Normocephalic, atraumatic. Respiratory: No increased work of breathing, no retractions or nasal flaring. Skin: Dry, no lesions. Neuro: Awake and alert, GCS 15. Normal gait. MDM: 21:44 Patient medically screened. rn 21:56 Differential diagnosis: STI, chlamydia. Data reviewed: vital signs, nurses notes, and rn as a result, I will discharge patient. Counseling: I had a detailed discussion with the patient and/or guardian regarding: the historical points, exam findings, and any diagnostic results supporting the discharge/admit diagnosis, the need for outpatient follow up, to return to the emergency department if symptoms worsen or persist or if there are any questions or concerns that arise at home. Special discussion: I discussed with the patient/guardian in detail that at this point there is no indication for admission to the hospital. It is understood, however, that if the symptoms persist or worsen the patient needs to return immediately for re-evaluation. Based on the history and exam findings, there is no indication for further emergent testing or inpatient evaluation. I discussed with the patient/guardian the need to see the primary care provider for further evaluation of the symptoms. Administered Medications: 22:20 Drug: Rocephin (cefTRIAXone) 250 mg Route: IM; Site: right gluteus; bb 22:21 Follow up: Response: Medication administered at discharge. bb 22:20 Drug: Doxycycline 100 mg Route: PO; bb 22:22 Follow up: Response: Medication administered at discharge. 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
[2022-06-01] MEDS ORDERED: CEFTRIAXONE 250 MG/VIAL ONE (22:07)
[2022-06-01] MEDS ORDERED: LIDOCAINE 1% MPF 2 ML AMPULE ONE (22:07)
[2022-06-01] MEDS ORDERED: DOXYCYCLINE 100 MG CAP PO ONE (22:07)
--- NOTE | 2022-06-01 22:22 | ER ---
Nurse's Notes [facility] Name: Esther Royal Age: 26 yrs Sex: Female : 1995 Arrival Date: 06/01/2022 Time: 21:41 Bed DIS5 Private MD: Diagnosis: Sexually transmitted chlamydial infection of other sites;Unspecified sexually transmitted disease - Family history:: not pertinent. - Hospitalizations: : No recent hospitalization is reported. Assessment: 06/01 22:20 General: Appears in no apparent distress. Behavior is calm, cooperative. Neuro: Level bb of Consciousness is awake, alert, obeys commands, Oriented to person, place, time, situation, pt seen by this RN at discharge pt verbalized understanding of and agrees to plan of care discharge instructions given pt ambulated with steady gait to exit accompanied by friend. ED Course: 21:41 Patient arrived in ED. [id number] 21:44 Kory Davila MD is Attending Physician. rn Administered Medications: 22:20 Drug: Rocephin (cefTRIAXone) 250 mg Route: IM; Site: right gluteus; bb 22:21 Follow up: Response: Medication administered at discharge. bb 22:20 Drug: Doxycycline 100 mg Route: PO; bb 22:22 Follow up: Response: Medication administered at discharge. bb Outcome: 21:58 Discharge ordered by . rn 22:21 Discharged to home ambulatory, with friend. bb 22:21 Condition: stable 22:21 Discharge instructions given to patient, Instructed on discharge instructions, follow up and referral plans. medication usage, Demonstrated understanding of instructions, follow-up care, medications, Prescriptions given X 1. 22:22 Patient left the ED. bb Signatures: Zulay Perry RN Kory Saenz MD MD rn Jeffries, Jennifer [id number]
== END 2022-06-01 22:22 | disposition home or self-care (01) ==
LOC: ER 21:32
DX: A56.8 Sexually transmitted chlamydial infection of other sites (principal)
CPT/HCPCS: 96372; 99283; J0696

== ENCOUNTER 2023-07-15 16:19 | Emergency (ER) | payer SELFPAY ==
--- OUTSIDE RECORDS SUMMARY | 2023-07-15 16:23 | XMS REPORT | Continuity of Care Document ---
:1995 Author Organization [facility] t Address [address] [facility] [address] [place] [address] Care Team Providers Name Role Phone PCP, PATIENT DOES NOT HAVE A Primary Care Physician Unavaila ble [email or web address] Attending Clinician Unavailable LILLIAN LITTLE Attending Clinician Unavailable Lillian Little MD Attending Clinician 2, Adc Lab Attending Clinician Unavailable Doctor Unassigned, [place] Attending Clinician Unavailable Vy Ordaz Attending Clinician Lab, Adc Fam Pob I Attending Clinician Unavailable Greta Bliss Attending Clinician GRETA SANCHEZ Attending Clinician Unavailable [email or web address] Admitting Clinician Unavailable LILLIAN LITTLE Admitting Clinician Unavailable Payers Payer Name Policy Type Policy Number Effective Date Expiration Date [facility] [id number] 2020 CHOICE MEDICAID 00:00:00 Problems Condition Condition Condition Status Onset Resolution Last Treating Co mments Source Name Details Category Date Date Treatment Clinician Date Acquired Acquired Disease Active Unive rs hypothyroi hypothyroi 6-17 it y of dism dism 00:00: [address] Allergies, Adverse Reactions, Alerts Allergy Allergy Status Severity Reaction(s) Onset Inactive Treating Comm ents Source Name Type Date Date Clinician NO KNOWN Drug Active Univers ALLERGIE Class ity of S [facility] Social History Social Habit Start Date Stop Date Quantity Comments Source Exposure to Not sure University of SARS-CoV-2 (event) [place] [facility] Sexual orientation [facility] Tobacco use and 2020-08-28 2020-08-28 Never used Universit y of exposure 00:00:00 00:00:00 [facility] Sex Ass[birth year] CLARA Ana camposs 00:00:00 00:00:00 [facility] Smoking Status Start Date Stop Date Source Never smoker [facility] Unknown if ever smoked Universit y of [facility] Medications Ordered Filled Start Stop Current Ordering Indication Dosage Frequency Signature Comments Components Source Medication Medication Date Date Medication? Clinician (SIG) Name Name levothyroxi Yes [id number] 50ug Take 1 Univers ne 50 mcg 2-12 tablet by ity o f tablet 00:00: mouth [place] 00 every Medical morning. Branch levothyroxi Yes [id number] 50ug Take 1 Univers ne 50 mcg 2-12 tablet by ity o f tablet 00:00: mouth [place] 00 every Medical morning. Branch levothyroxi Yes [id number] 50ug Take 1 Univers ne 50 mcg 2-12 tablet by ity o f tablet 00:00: mouth [place] 00 every Medical morning. Branch levothyroxi Yes [id number] 50ug Take 1 Univers ne 50 mcg 2-12 tablet by ity o f tablet 00:00: mouth [place] 00 every Medical morning. Branch Levothyroxi 2020-2020- No 1{capsu Take 1 Univers ne 25 mcg 2-08 02-08 le} capsule by ity of capsule 07:12: 00:00 mouth [place] 35 :00 daily. Medical Branch Levothyroxi 2020-2020- No 1{capsu Take 1 Univers ne 25 mcg 2-08 02-08 le} capsule by ity of capsule 07:12: 00:00 mouth [place] 35 :00 daily. Medical Branch Levothyroxi 2020-2020- No 1{capsu Take 1 Univers ne 25 mcg 2-08 02-08 le} capsule by ity of capsule 07:12: 00:00 mouth [place] 35 :00 daily. [facility] Levothyroxi 2020-2020- No 1{capsu Take 1 Univers ne 88 mcg -28 08- le} capsule by ity of capsule 21:25: 00:00 mouth [place] 16 :00 daily. [facility] Levothyroxi 0 1- No 1{capsu Take 1 Univers ne 88 mcg 08-28 le} capsule by ity of capsule 21:25: 00:00 mouth [place] 16 :00 daily. Medical Branch Levothyroxi 2020-0 2021- No 1{capsu Take 1 Univers ne 88 mcg 08-28 le} capsule by ity of capsule 21:25: 00:00 mouth [place] 16 :00 daily. Medical Branch SERTraline 2020-0 Yes Univers 100 mg 1-08 ity of tablet 00:00: [place] 00 Medical Branch SERTraline 2020-0 Yes Univers 100 mg 1-08 ity of tablet 00:00: [place] 00 Medical Branch SERTraline 2020-0 Yes Univers 100 mg 1-08 ity of tablet 00:00: [place] 00 Medical Branch SERTraline 2020-0 Yes Univers 100 mg 1-08 ity of tablet 00:00: [place] 00 Medical Branch SERTraline 2020-0 Yes Univers 100 mg 1-08 ity of tablet 00:00: [place] 00 Medical Branch SERTraline 2020-0 Yes Univers 100 mg 1-08 ity of tablet 00:00: [place] 00 Medical Branch SERTraline 2020-0 Yes Univers 100 mg 1-08 ity of tablet 00:00: [place] 00 Medical Branch SERTraline 2020-0 Yes Univers 100 mg 1-08 ity of tablet 00:00: [place] 00 Medical Branch levothyroxi 2020-0 Yes Univer s ne 25 mcg 1-07 ity of tablet 00:00: [place] 00 Medical Branch levothyroxi 2020-0 Yes Univer s ne 25 mcg 1-07 ity of tablet 00:00: [place] 00 Medical Branch levothyroxi 2020-0 Yes Univer s ne 25 mcg 1-07 ity of tablet 00:00: [place] 00 Medical Branch levothyroxi 2020-0 1- No Unive rs ne 25 mcg 1-07 -12 ity of tablet 00:00: 00:00 [place] 00 :00 Medical Branch levothyroxi 2020-0 1- No Unive rs ne 25 mcg 1-02 14-12 ity of tablet 00:00: 00:00 [place] 00 :00 Medical Branch Levothyroxi 2019- Yes 1{capsu Take 1 U nivers ne [...] daily. Medical Branch mupirocin 2 2018-08 Yes [id number] Apply to Univers % ointment 0-07 [id number] area(s) 3 it y of 00:00: (three) [place] 00 times Medical daily. Branch mupirocin 2 2018-08 Yes [id number] Apply to Univers % ointment 0-07 [id number] area(s) 3 it y of 00:00: (three) [place] 00 times Medical daily. Branch mupirocin 2 2018-08 Yes [id number] Apply to Univers % ointment 0-07 [id number] area(s) 3 it y of 00:00: (three) [place] 00 times Medical daily. Branch mupirocin 2 2018-08 Yes [id number] Apply to Univers % ointment 0-07 [id number] area(s) 3 it y of 00:00: (three) [place] 00 times Medical daily. Branch mupirocin 2 2018-08 Yes [id number] Apply to Univers % ointment 0-07 [id number] area(s) 3 it y of 00:00: (three) [place] 00 times Medical daily. Branch mupirocin 2 2018-08- No [id number] Apply to Univers % ointment 0-07 01-13 [id number] area(s) 3 i ty of 00:00: 00:00 (three) [place] 00 :00 times Medical daily. Branch mupirocin 2 2018-08- No [id number] Apply to Univers % ointment 008-28 [id number] area(s) 3 i ty of 00:00: 00:00 (three) [place] 00 :00 times Medical daily. Branch mupirocin 2 2018-08- No [id number] Apply to Univers % ointment 008-28 [id number] area(s) 3 i ty of 00:00: 00:00 (three) [place] 00 :00 times Medical daily. Branch ibuprofen 2015-08 Yes 800mg Take 1 Unive rs (MOTRIN) 0-23 tablet by ity of 800 mg 00:00: mouth [place] tablet 00 every 6 Medical (six) Branch hours as needed for Pain unrelieved by Tylenol. ibuprofen 2015-08 No 800mg Take 1 Univ ers (MOTRIN) 008-28 tablet by ity o f 800 mg 00:00: 00:00 mouth [place] tablet 00 :00 every 6 Medical (six) Branch hours as needed for Pain unrelieved by Tylenol. ibuprofen 2015-08 No 800mg Take 1 Univ ers (MOTRIN) 008-28 tablet by ity o f 800 mg 00:00: 00:00 mouth [place] tablet 00 :00 every 6 Medical (six) Branch hours as needed for Pain unrelieved by Tylenol. ibuprofen 2015-08 No 800mg Take 1 Univ ers (MOTRIN) 008-28 tablet by ity o f 800 mg 00:00: 00:00 mouth [place] tablet 00 :00 every 6 Medical (six) Branch hours as needed for Pain unrelieved by Tylenol. Vital Signs Vital Name Observation Time Observation Value Comments Source Systolic blood 2020-12-31 21:25:00 108 mm[Hg] Univer sity of pressure [facility] Diastolic blood 2020-12-31 21:25:00 67 mm[Hg] Unive rsity of [facility] Heart rate 2020-12-31 21:25:00 70 /min [facility] Body weight 2020-12-31 21:25:00 77.565 kg [facility] BMI 2020-12-31 21:25:00 28.46 kg/m2 [facility] Oxygen saturation in 2020-12-31 21:25:00 97 /min University of Arterial blood by [facility] Pulse oximetry Branch Systolic blood 2020-08-28 21:23:00 101 mm[Hg] Univer sity of pressure [facility] Diastolic blood 2020-08-28 21:23:00 62 mm[Hg] Unive rsity of pressure [facility] Heart rate 2020-08-28 21:23:00 74 /min Universi ty [facility] Respiratory rate 2020-08-28 21:23:00 18 /min Univ ersity [facility] Body height 2020-08-28 21:23:00 165.1 cm Universi ty [facility] Body weight 2020-08-28 21:23:00 75.388 kg [facility] BMI 2020-08-28 21:23:00 27.66 kg/m2 [facility] Oxygen saturation in 2020-08-28 21:23:00 98 /min University Arterial blood by [facility] Pulse oximetry [place] Procedures Procedure Date / Time Performed Performing Clinician [facility] e REFERRAL- 2020-08-02 06:01:00 Doctor Unassigned, No [facility] REQUEST/RESPONSE Name [facility] Encounters Start End Encounter Admission Attending Care Care Encounter Source Date/Time Date/Time Type Type Clinicians Facility Department ID 2023-06-15 2023-06-15 Outpatient [id number] PRIV PRIV [id number] [facility] 00:00:00 00:00:00 diyala_S [id number] Medic al 2021-07-08 2021-07-08 Outpatient R IVÁN [facility] [id number] Univers 16:00:00 16:00:00 [facility] 2021-05-07 2021-05-07 Telephone Iván [facility] [id number] Univers 00:00:00 00:00:00 [employer] [id number] it y of [place] [id number] Valdemar as Pedrito?Blea [phone] [address] Medical Office Building 2021-01-15 2021-01-15 Outpatient R IVÁN [facility] [id number] Univers 15:00:00 15:00:00 [facility] 2021-01-01 2021-01-01 Outpatient R [facility] [id number] Univers 13:15:00 13:15:00 ity [facility] 2020-12-31 2020-12-31 Office [facility] [id number] Univers 16:19:22 16:48:55 Visit Lillian Byrnes [id number] i ty [facility] [id number] [phone] Mt dical nal 220 [facility] 2020-12-31 2020-12-31 Outpatient R IVÁN [facility] [id number] Univers 16:30:00 16:30:00 [facility] [place] 2020-09-27 2020-09-27 Patient [facility] [id number] Univers 00:00:00 00:00:00 Secure Msg Lillian Byrnes [id number] ity [facility] [id number] [place] [phone] Mt dical nal 220 [facility] 2020-09-25 2020-09-25 Outpatient R IVÁN [facility] [id number] Univers 14:45:00 14:45:00 LILLIAN [facility] 2020-09-25 2020-09-25 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 2, Adc Lab [facility] [id number] Univers 13:57:34 14:12:34 Visit Lillian Little [id number] ity [place] [id number] [place] [phone] Mt dical nal 353 [facility] 2020-09-23 2020-09-23 Outpatient R IVÁN [facility] [id number] Univers 16:02:47 23:59:00 [facility] 2020-08-29 2020-08-29 Outpatient R IVÁN [facility] [id number] Univers 09:45:00 09:45:00 [facility] 2020-08-28 2020-08-28 Office [facility] [id number] Univers 15:06:19 16:11:56 Visit Lillian Soniya [id number] i ty [place] [id number] [place] [phone] Me dical [facility] 220 [facility] 2020-08-28 2020-08-28 Outpatient R IVÁN [facility] [id number] Univers 15:00:00 15:00:00 WENTONG ity [facility] 2020-08-17 2020-08-17 Outpatient R [facility] [id number] Univers 11:40:00 11:40:00 ity [facility] 2020-08-02 2020-08-02 Orders Doctor MAURIZIO [id number] Univers 00:00:00 00:00:00 Only Unassigned, CHIKIS [id number] ity of [place] [facility] [id number] Valdemar as [phone] [address] 2020-02-26 2020-02-26 Letter [facility] [id number] 00:00:00 00:00:00 (Out) Vy [place] [id number] [place] [id number] Professio [phone] 2020-02-26 2020-02-26 Weston [facility] [id number] 00:00:00 00:00:00 (Out) Vy [place] [id number] [place] [id number] Professio [phone] [address] 2020-02-26 2020-02-26 Weston [facility] [id number] Univers 00:00:00 00:00:00 (Out) Vy [place] [id number] i ty [place] [id number] [place] [phone] Mt dic[address] 2020-02-26 2020-02-26 Weston [facility] [id number] Univers 00:00:00 00:00:00 (Out) Vy [place] [id number] i ty [place] [id number] [place] [phone] Mt dical nal 353 [facility] 2020-02-23 2020-02-23 Telephone MAURIZIO Dobbs [id number] 00:00:00 00:00:00 Vy CHIKIS [id number] [facility] [phone] [facility][note 3] 2020-02-23 2020-02-23 Telephone MAURIZIO Dobbs [id number] Univers 00:00:00 00:00:00 Vy FLORESY [id number] it y of [facility] [id number] Valdemar as [phone] [address] 2020-02-22 2020-02-22 Laboratory Lab, [facility] 1.2.840.114 [id number] 09:46:55 10:06:55 Only Fam Pob I Health [id number] [place] [id number] Professio [phone] [address] 2020-02-22 2020-02-22 Laboratory Lab, [facility] Fam Pob I [facility] [id number]. [id number] [facility] 09:46:55 10:06:55 Only Greta Sanchez Health [id number] ity of [place] [id number] Valdemar as Professio [phone] [facility] 044 [place] Office [facility] 2020-02-22 2020-02-22 Outpatient R LAURA [facility] [id number] [facility] 09:20:00 09:20:00 GRETA junior of [facility] Results Test Description Test Time Test Comments Results Result Comments Source SARS-COV2/RT-PCR ([facility]) 2020-03-12 10:34:00 Test Item Value Reference Range Interpretation Comme nts SARS-COV2/RT-PCR (test code = 2968029) Negative Not Detected, N egative, See external report for linked test SARS-COV-2 PERFORMING LAB (test code = [facility] [id number]) Negative result for this test determines that [...] of the Act.Fact Sheet for Healthcare Prov iders:https://www.[employer]sites/default/files/product/documents/Fact_Sheet_HC _Nrmyaslsz_Upop_SHIM-OqM-2.pdfFact Sheet for Healthcare Patients:https://www.[employer]sites/default/files/product/docume nts/Hnvj_Yozto_Acetrrcp_Tzql_KVTU-ImD-9.pdfPerforming Laboratory:[facility] [place] [address]
[2023-07-15] MEDS ORDERED: ONDANSETRON 4 MG/2 ML VIAL ONE ×2 (17:14→17:48)
[2023-07-15] MEDS ORDERED: KETOROLAC 30 MG/ML INJ ONE (17:14)
[2023-07-15] MEDS ORDERED: NA CHLORIDE 0.9% 1,000 ML ONE ×2 (17:14→19:36)
[2023-07-15 17:15] LABS: Absolute Lymphocytes (CBC) 1.8 K/uL (0.7-4.9); Hematocrit 42.3 % (36.0-45.0); Lymphocytes % 14.9 % (15.3-44.8); MPV 8.6 fL (7.6-11.3); Platelets 250 thou/uL (152-406); RBC Red Blood Cell Count 4.81 M/uL (3.86-4.86)
[2023-07-15 17:20] LABS: Urine Bacteria <20 /HPF (<20); Urine Bilirubin NEGATIVE (Negative); Urine Blood 1+ (Negative); Urine Clarity Extremely Turbid (Clear); Urine Color Yellow (Yellow); Urine Glucose TRACE (Negative); Urine Mucus 4+ /HPF (None Seen); Urine Protein 2+ (Negative); Urine Urobilinogen 1+ (Normal); Urine pH 6.5 (5.0-7.0)
[2023-07-15] MEDS ORDERED: DICYCLOMINE HCL 20 MG/2 ML AMP IM ONE (17:39)
[2023-07-15 17:44] LABS: Albumin 4.3 g/dL (3.4-5.0); Bilirubin Total 0.4 mg/dL (0.2-1.0); Potassium 3.8 mEq/L (3.5-5.1); Protein, Total 8.4 g/dL (6.4-8.2)
[2023-07-15 17:47] LABS: Specific Gravity > 1.030 (1.005-1.030)
--- NOTE | 2023-07-15 18:36 | RAD REPORT ---
EXAM DESCRIPTION: US - Transvaginal OB - 07/15/2023 6:18 pm CLINICAL HISTORY: Abd cramping, ;Vaginal bleeding COMPARISON: <Comparisons> FINDINGS: The uterus is normal size. Endometrium is thickened up to 14 mm. No gestational sac is seen. The maternal adnexa and ovaries are within normal limits. Normal Doppler blood flow was demonstrated to both ovaries. IMPRESSION: Thickened endometrial stripe is noted. No gestational sac is evident. This may indicate early . In the setting of a positive HCG level, this would signify a of unknown lo cation. Recommend serial HCG measurements and follow-up sonogram in 10-12 days.
--- NOTE | 2023-07-15 18:52 | ER ---
Nurse's Notes [facility] Name: Esther Royal Age: 27 yrs Sex: Female : 1995 Arrival Date: 07/15/2023 Time: 16:19 Bed 12 Private MD: Diagnosis: Nausea with vomiting, unspecified;Threatened Presentation: 07/15 16:27 Chief complaint: Patient states: heavy bleeding and clots for more than 24 hours. ko1 Coronavirus screen: At this time, the client does not indicate any symptoms associated with coronavirus-19. Ebola Screen: No symptoms or risks identified at this time. Initial Sepsis Screen: Does the patient meet any 2 criteria? No. Patient's initial sepsis screen is negative. Does the patient have a suspected source of infection? No. Patient's initial sepsis screen is negative. Risk Assessment: Do you want to hurt yourself or someone else? Patient reports no desire to harm self or others. Onset of symptoms was July 15, 2023. 16:27 Method Of Arrival: Ambulatory ko1 16:27 Acuity: PAVEL 4 ko1 Triage Assessment: 16:29 General: Appears in no apparent distress. Behavior is calm, cooperative, appropriate ko1 for age. Pain: Complains of pain in abdomen. : Reports vaginal bleeding that is heavy flow. 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 - Social history:: Smoking status: Patient denies any tobacco usage or history of. Screenin:57 [facility] ED Fall Risk Assessment (Adult) History of falling in the last 3 months, cp4 including since admission No falls in past 3 months (0 pts) Confusion or Disorientation No (0 pts) Intoxicated or Sedated No (0 pts) Impaired Gait No (0 pts) Mobility Assist Device Used No (0 pt) Altered Elimination No (0 pt) Score/Fall Risk Level 0 - 2 = Low Risk Oriented to surroundings, Maintained a safe environment, Educated pt \T\ family on fall prevention, incl call for assistance when getting out of bed, Hourly rounding (assess needs \T\ fall precautionary measures) done. Abuse screen: Denies threats or abuse. Nutritional screening: No deficits noted. Tuberculosis screening: No symptoms or risk factors identified. Assessment: 16:57 General: Appears in no apparent distress. Behavior is calm, cooperative, appropriate cp4 for age. : Last void was July 15, 2023. Vital Signs: 16:27 BP 113 / 78; Pulse 82; Resp 18; Temp 97.9; Pulse Ox 100% ; ko1 20:45 BP 104 / 74; Pulse 75; Resp 16; Pulse Ox 100% ; cp4 ED Course: 16:23 Patient arrived in ED. im 16:24 Yahir Reid PA is PHCP. cp 16:25 Yahir Perry MD is Attending Physician. cp 16:29 Triage completed. ko1 16:31 Arm band placed on right wrist. Patient placed in waiting room, Patient notified of ko1 wait time. 16:56 Kiara Branch is Primary Nurse. cp4 16:57 Bed in low position. Call light in reach. Side rails up X 1. cp4 17:02 CMP Sent. bc6 17:02 Lipase Sent. bc6 17:02 Abo/rh Typing Sent. bc6 17:02 CBC with Diff Sent. bc6 17:02 Test, Urine Sent. bc6 17:02 Quantitative Hcg Sent. bc6 17:02 Urinalysis w/ reflexes Sent. bc6 17:02 Inserted saline lock: 20 gauge in left antecubital area, using aseptic technique. Blood bc6 collected. 17:40 CMP Sent. cp4 17:40 Lipase Sent. cp4 17:40 Abo/rh Typing Sent. cp4 17:40 Quantitative Hcg Sent. cp4 17:40 Urinalysis w/ reflexes Sent. cp4 18:19 US Transvaginal Ob In Process Unspecified. EDMS 20:45 No provider procedures requiring assistance completed. intact, bleeding controlled, No cp4 redness/swelling at site. Pressure dressing applied. 20:46 Provided Education on: threaten miscarriage, nausea and vomiting. . cp4 Administered Medications: 17:03 Drug: NS 0.9% IV 1000 ml IV at 1 bolus Per protocol; 1000 mL bolus Route: IV; Rate: 1 cp4 bolus; Site: left antecubital; 17:42 Follow up: Response: No adverse reaction; IV Status: Completed infusion cp4 19:13 Follow up: Response: No adverse reaction; IV Status: Completed infusion cp4 17:21 Not Given (Pregnancyy): [id number] mg IVP once cp4 17:21 Drug: Ondansetron IVP 4 mg IVP once; over 2 minutes Route: IVP; Site: left antecubital; cp4 17:43 Follow up: Response: No adverse reaction cp4 17:39 Drug: Dicyclomine IM 20 mg IM once Route: IM; Site: left deltoid; cp4 17:43 Follow up: Response: No adverse reaction cp4 17:42 Drug: Ondansetron IVP 4 mg IVP once; over 2 minutes Route: IVP; Site: left antecubital; cp4 17:43 Follow up: Response: No adverse reaction cp4 19:12 Drug: Acetaminophen PO 1000 mg PO once Route: PO; cp4 19:25 Not Given (Physician Discretion): [id number] mg IVP once cp 19:26 Not Given (Physician Discretion): [id number] mg IVP once cp 19:28 Drug: NS 0.9% IV 1000 ml IV at 1 bolus Per protocol; 1000 mL bolus Route: IV; Rate: 1 cp4 bolus; Site: left antecubital; 20:47 Follow up: Response: No adverse reaction; IV Status: Completed infusion cp4 19:32 Drug: morphine IVP or IV 4 mg IVP once over 4 mins Route: IVP; Infused Over: 4 mins; cp4 Site: left antecubital; 20:47 Follow up: Response: No adverse reaction cp4 19:32 Drug: metoCLOPramide IVP 10 mg IVP once; over 1 to 2 minutes Route: IVP; Site: left cp4 antecubital; 20:47 Follow up: Response: No adverse reaction cp4 Medication: 16:57 VIS not applicable for this client. cp4 Outcome: 18:51 Discharge ordered by . cp 20:45 Discharged to home ambulatory, cp4 20:45 Condition: stable 20:45 Discharge instructions given to patient, Instructed on discharge instructions, follow up and referral plans. medication usage, Demonstrated understanding of instructions, follow-up care, medications, Prescriptions given X 1, 20:48 Patient left the ED. cp4 Signatures: Dispatcher [facility] EDOK Yahir Reid PA PA cp Oliver, Kathy, RN RN ko1 Camille Aiken bc6 Rashida Garcia Christina cp4 Corrections: (The following items were deleted from the chart) 16:29 Home Meds: levothyroxine oral; ko1 ko1 16:29 PMHx: Hypothyroidism; ko1 ko1
--- NOTE | 2023-07-15 18:52 | EDPHYS ---
Physician Documentation [facility] Name: Esther Royal Age: 27 yrs Sex: Female : 1995 Arrival Date: 07/15/2023 Time: 16:19 Bed 12 Private MD: ED Physician Yahir Perry HPI: 07/15 16:50 This 27 yrs old Female presents to ER via Ambulatory with complaints of cp Vaginal Bleeding, Vomiting, Abdominal Cramping. 16:50 The patient presents with vaginal bleeding that is heavy, with clots. Onset: The cp symptoms/episode began/occurred yesterday. 16:50 Associated signs and symptoms: Pertinent positives: cramping, nausea, vomiting, cp Pertinent negatives: diarrhea, fever, urinary frequency. Severity of symptoms: in the emergency department the symptoms are unchanged, despite home interventions. 16:50 The patient is sexually active, does not use protection during intercourse. The cp patient's method of control includes nothing. 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 - Social history:: Smoking status: Patient denies any tobacco usage or history of. ROS: 16:55 Constitutional: Positive for poor PO intake, Negative for body aches, chills, fever, cp 16:55 Eyes: Negative for injury, pain, redness, and discharge, cp 16:55 ENT: Negative for drainage from ear(s), ear pain, sore throat, difficulty swallowing, difficulty handling secretions, 16:55 Cardiovascular: Negative for chest pain, palpitations, 16:55 Respiratory: Negative for cough, shortness of breath, wheezing, 16:55 Abdomen/GI: Positive for abdominal pain, nausea, vomiting, Negative for constipation, hematemesis, black/tarry stool, rectal bleeding, 16:55 : Positive for vaginal bleeding, Negative for urinary symptoms, flank pain, 16:55 Neuro: Negative for altered mental status, dizziness, headache, syncope, 16:55 All other systems are negative, Exam: 17:00 Constitutional: The patient appears in no acute distress, alert, awake, non-toxic, well cp developed, well nourished, anxious, uncomfortable, 17:00 Head/Face: Normocephalic, atraumatic. cp 17:00 Eyes: Periorbital structures: appear normal, Conjunctiva: normal, no exudate, no injection, Sclera: no appreciated abnormality, Lids and lashes: appear normal, bilaterally, 17:00 ENT: External ear(s): are unremarkable, Nose: is normal, Mouth: Lips: moist, Oral mucosa: pink and intact, moist, Posterior pharynx: is normal, airway is patent, no erythema, no exudate, 17:00 Neck: ROM/movement: is normal, is supple, without pain, no range of motions limitations, 17:00 Chest/axilla: Inspection: normal, 17:00 Cardiovascular: Rate: normal, Rhythm: regular, 17:00 Respiratory: the patient does not display signs of respiratory distress, Respirations: normal, no use of accessory muscles, no retractions, labored breathing, is not present, Breath sounds: are clear throughout, no decreased breath sounds, no stridor, no wheezing, 17:00 Abdomen/GI: Inspection: abdomen appears normal, Bowel sounds: active, all quadrants, Palpation: soft, in all quadrants, moderate abdominal tenderness, in the right lower quadrant and left lower quadrant, rebound tenderness, is not appreciated, involuntary guarding, is not appreciated, 17:00 Back: CVA tenderness, is absent, 17:00 Neuro: Orientation: to person, place \T\ time. Mentation: is normal, Motor: moves all fours, strength is normal, Sensation: is normal, Vital Signs: 16:27 BP 113 / 78; Pulse 82; Resp 18; Temp 97.9; Pulse Ox 100% ; ko1 20:45 BP 104 / 74; Pulse 75; Resp 16; Pulse Ox 100% ; cp4 MDM: 16:42 Patient medically screened. cp 18:50 Data reviewed: vital signs, nurses notes, lab test result(s), radiologic studies, cp ultrasound. 18:50 Differential diagnosis: appendicitis, dysmenorrhea, molar preganancy, nonspecific cp abdominal pain, ovarian cyst, ruptured ectopic , urinary tract infection, vaginosis. Consideration of Admission/Observation Escalation of care including admission/observation considered. I considered the following discharge prescriptions or medication management in the emergency department Medications were administered in the Emergency Department. See OCT. 20:45 ED course: VSS. Patient resting comfortably in exam. Discussed results of today's cp testing with positive test, US negative for IUP. Patient instructed on concern for possible ectopic vs spontaneous miscarriage vs early . Will discharge to home with instructions for beta-hcg recheck 48 hours and/or return to ED worsening vaginal bleeding, pain. 07/15 16:43 Order name: Abo/rh Typing; Complete Time: 17:48 07/15 17:49 Interpretation: Reviewed. 07/15 16:43 Order name: CBC with Diff; Complete Time: 17:27 07/15 17:27 Interpretation: Normal except: WBC 12.30; MARTHA% 79.5; LYM% 14.9; NEUT A 9.8. 07/15 16:43 Order name: Test, Urine; Complete Time: 17:48 07/15 17:49 Interpretation: Reviewed. 07/15 16:43 Order name: Quantitative Hcg; Complete Time: 17:48 07/15 17:48 Interpretation: Reviewed. 07/15 16:43 Order name: Urinalysis w/ reflexes; Complete Time: 17:48 07/15 17:49 Interpretation: Reviewed. 07/15 16:43 Order name: Lipase; Complete Time: 17:48 07/15 18:38 Interpretation: Reviewed. 07/15 16:43 Order name: CMP; Complete Time: 17:48 07/15 18:38 Interpretation: Normal except: NA 135; GLUC 125; BUN 22; GFR 85; AST 14; TP 8.4; GLOB cp 4.1; A/G 1.0. 07/15 17:32 Order name: US Transvaginal Ob; Complete Time: 18:37 07/15 18:38 Interpretation: Report reviewed. 07/15 16:43 Order name: IV Saline Lock; Complete Time: 17:02 07/15 16:43 Order name: Labs collected and sent; Complete Time: 17:02 07/15 16:43 Order name: NPO; Complete Time: 17:02 cp Administered Medications: 17:03 Drug: NS 0.9% IV 1000 ml IV at 1 bolus Per protocol; 1000 mL bolus Route: IV; Rate: 1 cp4 bolus; Site: left antecubital; 17:42 Follow up: Response: No adverse reaction; IV Status: Completed infusion cp4 19:13 Follow up: Response: No adverse reaction; IV Status: Completed infusion cp4 17:21 Not Given (Pregnancyy): [id number] mg IVP once cp4 17:21 Drug: Ondansetron IVP 4 mg IVP once; over 2 minutes Route: IVP; Site: left antecubital; cp4 17:43 Follow up: Response: No adverse reaction cp4 17:39 Drug: Dicyclomine IM 20 mg IM once Route: IM; Site: left deltoid; cp4 17:43 Follow up: Response: No adverse reaction cp4 17:42 Drug: Ondansetron IVP 4 mg IVP once; over 2 minutes Route: IVP; Site: left antecubital; cp4 17:43 Follow up: Response: No adverse reaction cp4 19:12 Drug: Acetaminophen PO 1000 mg PO once Route: PO; cp4 19:25 Not Given (Physician Discretion): [id number] mg IVP once cp 19:26 Not Given (Physician Discretion): [id number] mg IVP once cp 19:28 Drug: NS 0.9% IV 1000 ml IV at 1 bolus Per protocol; 1000 mL bolus Route: IV; Rate: 1 cp4 bolus; Site: left antecubital; 20:47 Follow up: Response: No adverse reaction; IV Status: Completed infusion cp4 19:32 Drug: morphine IVP or IV 4 mg IVP once over 4 mins Route: IVP; Infused Over: 4 mins; cp4 Site: left antecubital; 20:47 Follow up: Response: No adverse reaction cp4 19:32 Drug: metoCLOPramide IVP 10 mg IVP once; over 1 to 2 minutes Route: IVP; Site: left cp4 antecubital; 20:47 Follow up: Response: No adverse reaction cp4 Disposition Summary: 07/15/23 18:51 Discharge Ordered Notes: Location: Home cp Problem: new cp Symptoms: have improved cp Condition: Stable cp Diagnosis - Nausea with vomiting, unspecified cp - Threatened cp Followup: cp - With: Private Physician - When: 48 Hours - Reason: Repeat Beta-HCG (48 Hours) Discharge Instructions: - Discharge Summary Sheet cp - Nausea and Vomiting, Adult cp - Care cp - Threatened Miscarriage cp - Vaginal Bleeding During , First Trimester cp Forms: - Medication Reconciliation Form cp - Thank You Letter cp - Antibiotic Education cp - Prescription Opioid Use cp - Patient Portal Instructions cp - Leadership Thank You Letter cp Prescriptions: - promethazine 25 mg Oral Tablet - take 1 tablet ORAL route every 6 hours As needed; 20 tablet; Refills: 0, cp Product Selection Permitted Signatures: Dispatcher [employer] EDMS Yahir Reid PA PA cp Flaquita Carreon RN RN ko1 [facility] cp4 Corrections: (The following items were deleted from the chart) 16: 16:29 Home Meds: levothyroxine oral; ko1 ko1 16: 16:29 PMHx: Hypothyroidism; ko1 ko1 07/16 17:27 11 20:05 ED course: VSS. Patient resting comfortably in exam. Discussed results of cp today's testing with positive test, US negative for IUP. Patient instructed on concern for possible ectopic vs spontaneous miscarriage vs early . Will discharge to home with instructions for beta-hcg recheck 48 hours and/or return to ED worsening vaginal bleeding, pain. cp
[2023-07-15] MEDS ORDERED: ACETAMINOPHEN 500 MG TAB ONE (19:20)
[2023-07-15] MEDS ORDERED: DIPHENHYDRAMINE 50 MG/ML VIAL ONE (19:36)
[2023-07-15] MEDS ORDERED: MORPHINE 4 MG/ML SYR ONE (19:43)
[2023-07-15] MEDS ORDERED: METOCLOPRAMIDE 10 MG/2mL INJ ONE (19:43)
[2023-07-15 21:09] VITALS: TEMP 97.9; O2SAT 100
[2023-07-15 21:10] VITALS: BP 104/74
== END 2023-07-15 20:48 | disposition home or self-care (01) ==
LOC: ER 16:19
DX: O20.0 Threatened abortion (principal); R11.2 Nausea with vomiting, unspecified
CPT/HCPCS: 36415; 76817; 80053; 81001; 81025; 83690; 84702; 85025; 86900; 86901; 96361; 96372; 96374; 96375; 99284; J0500; J1200; J2405; J2765; J7030

== ENCOUNTER 2023-07-19 16:52 | Emergency (ER) | payer SELFPAY ==
--- OUTSIDE RECORDS SUMMARY | 2023-07-19 16:56 | XMS REPORT | Continuity of Care Document ---
:1995 Author Organization [facility] t Address [address] [facility] [address] [place] [id number] Care Team Providers Name Role Phone PCP, PATIENT DOES NOT HAVE A Primary Care Physician Unavaila ble [email or web address] Attending Clinician Unavailable LILLIAN LITTLE Attending Clinician Unavailable Lillian Little MD Attending Clinician 2, Adc Lab Attending Clinician Unavailable Doctor Unassigned, [place] Attending Clinician Unavailable Vy Ordaz Attending Clinician Lab, Adc Fam Pob I Attending Clinician Unavailable Greta Bliss Attending Clinician GRETA SANCHEZ Attending Clinician Unavailable [email or web address] Admitting Clinician Unavailable LILLIAN LITTLE Admitting Clinician Unavailable Payers Payer Name Policy Type Policy Number Effective Date Expiration Date [facility] [id number] 2020 CHOICE MEDICAID 00:00:00 Problems Condition Condition Condition Status Onset Resolution Last Treating Co mments Source Name Details Category Date Date Treatment Clinician Date Acquired Acquired Disease Active Unive rs hypothyroi hypothyroi 6-17 it y of dism dism 00:00: [address] Allergies, Adverse Reactions, Alerts Allergy Allergy Status Severity Reaction(s) Onset Inactive Treating Comm ents Source Name Type Date Date Clinician NO KNOWN Drug Active Univers ALLERGIE Class ity of S [facility] Social History Social Habit Start Date Stop Date Quantity Comments Source Exposure to Not sure University of SARS-CoV-2 (event) [place] [facility] Sexual orientation [facility] Tobacco use and 2020-08-28 2020-08-28 Never used Universit y of exposure 00:00:00 00:00:00 [facility] Sex Assigned At [birth year] CLARA Ana camposs 00:00:00 00:00:00 [facility] Smoking Status Start Date Stop Date Source Never smoker [facility] Unknown if ever smoked Universit y of [facility] Medications Ordered Filled Start Stop Current Ordering Indication Dosage Frequency Signature Comments Components Source Medication Medication Date Date Medication? Clinician (SIG) Name Name levothyroxi Yes [id number] 50ug Take 1 Univers ne 50 mcg 2-12 tablet by ity o f tablet 00:00: mouth [place] 00 every Medical morning. Branch levothyroxi Yes [id number] 50ug Take 1 Univers ne 50 mcg 2-12 tablet by ity o f tablet 00:00: mouth [place] 00 every Medical morning. Branch levothyroxi Yes [id number] 50ug Take 1 Univers ne 50 mcg 2-12 tablet by ity o f tablet 00:00: mouth [place] 00 every Medical morning. Branch levothyroxi Yes [id number] 50ug Take 1 Univers ne 50 mcg [...] 07:12: 00:00 mouth [place] 35 :00 daily. [facility] Levothyroxi 2020-2020- No 1{capsu Take 1 Univers ne 88 mcg -28 08- le} capsule by ity of capsule 21:25: 00:00 mouth [place] 16 :00 daily. [facility] Levothyroxi 0 1- No 1{capsu Take [...] 100 mg 1-08 ity of tablet 00:00: [place] 00 Medical Branch SERTraline 2020-0 Yes Univers 100 mg 1-08 ity of tablet 00:00: [place] 00 Medical Branch SERTraline 2020-0 Yes Univers 100 mg 1-08 ity of tablet 00:00: [place] 00 Medical Branch SERTraline 2020-0 Yes Univers 100 mg 1-08 ity of tablet 00:00: [place] 00 Medical Branch SERTraline 2020-0 Yes Univers 100 mg 1-08 ity of tablet 00:00: [place] 00 Medical Branch SERTraline 2020-0 Yes Univers 100 mg 1-08 ity of tablet 00:00: [place] 00 Medical Branch SERTraline 2020-0 Yes Univers 100 mg 1-08 ity of tablet 00:00: [place] 00 [facility] Branch SERTraline 2020-0 Yes Univers 100 mg 1-08 ity of tablet 00:00: [place] 00 Medical Branch levothyroxi 2020-0 Yes Univer s ne 25 mcg 1-07 ity of tablet 00:00: [place] 00 [facility] Branch levothyroxi 2020-0 Yes Univer s ne 25 mcg 1-07 ity of tablet 00:00: [place] 00 Medical Branch levothyroxi 2020-0 Yes Univer s ne 25 mcg 1-07 ity of tablet 00:00: [place] 00 Medical Branch levothyroxi 2020-0 1- No Unive rs ne 25 mcg 1-07 -12 ity of tablet 00:00: 00:00 [place] 00 :00 Medical Branch levothyroxi 2020-0 1- No Unive rs ne 25 mcg 1-02 14-12 ity of tablet 00:00: 00:00 [place] 00 :00 Medical Branch Levothyroxi 2019- Yes [...] daily. Medical Branch mupirocin 2 2018-08 Yes [id number] Apply to Univers % ointment 0-07 732300 area(s) 3 it y of 00:00: (three) [place] 00 times Medical daily. Branch mupirocin 2 2018-08 Yes [id number] Apply to Univers % ointment 0-07 117020 area(s) 3 it y of 00:00: (three) [place] 00 times Medical daily. Branch mupirocin 2 2018-08 Yes [id number] Apply to Univers % ointment 0-07 296690 area(s) 3 it y of 00:00: (three) [place] 00 times Medical daily. Branch mupirocin 2 2018-08 Yes [id number] Apply to Univers % ointment 0-07 442805 area(s) 3 it y of 00:00: (three) [place] 00 times Medical daily. Branch mupirocin 2 2018-08 Yes [id number] Apply to Univers % ointment 0-07 366859 area(s) 3 it y of 00:00: (three) [place] 00 times Medical daily. Branch mupirocin 2 2018-08- No [id number] Apply to Univers % ointment 0-07 01-13 190529 area(s) 3 i ty of 00:00: 00:00 (three) [place] 00 :00 times Medical daily. Branch mupirocin 2 2018-08- No [id number] Apply to Univers % ointment 008-28 157702 area(s) 3 i ty of 00:00: 00:00 (three) [place] 00 :00 times Medical daily. Branch mupirocin 2 2018-08- No [id number] Apply to Univers % ointment 008-28 805520 area(s) 3 i ty of 00:00: 00:00 [...] 21:25:00 108 mm[Hg] Univer sity of pressure [facility] Diastolic blood 2020-12-31 21:25:00 67 mm[Hg] Unive rsity of [facility] Heart rate 2020-12-31 21:25:00 70 /min [facility] Body weight 2020-12-31 21:25:00 77.565 kg [facility] BMI 2020-12-31 21:25:00 28.46 kg/m2 [facility] Oxygen saturation in 2020-12-31 21:25:00 97 /min University of Arterial blood by [facility] Pulse oximetry Branch Systolic blood 2020-08-28 21:23:00 101 mm[Hg] Univer sity of pressure [facility] Diastolic blood 2020-08-28 21:23:00 62 mm[Hg] Unive rsity of pressure [facility] Heart rate 2020-08-28 21:23:00 74 /min Universi ty [facility] Respiratory rate 2020-08-28 21:23:00 18 /min Univ ersity [facility] Body height 2020-08-28 21:23:00 165.1 cm Universi ty [facility] Body weight 2020-08-28 21:23:00 75.388 kg [facility] BMI 2020-08-28 21:23:00 27.66 kg/m2 [facility] Oxygen saturation in 2020-08-28 21:23:00 98 /min University Arterial blood by [facility] Pulse oximetry [place] Procedures Procedure Date / Time Performed Performing Clinician [facility] e REFERRAL- 2020-08-02 06:01:00 Doctor Unassigned, No [facility] REQUEST/RESPONSE Name [facility] Encounters Start End Encounter Admission Attending Care Care Encounter Source Date/Time Date/Time Type Type Clinicians Facility Department ID 2023-06-15 2023-06-15 Outpatient [id number] PRIV PRIV [id number] [facility] 00:00:00 00:00:00 diyala_S [id number] Medic al 2021-07-08 2021-07-08 Outpatient [facility] [id number] Univers 16:00:00 16:00:00 RaffstarLADONIA [facility] 2021-05-07 2021-05-07 Telephone Iván [facility] [id number] Univers 00:00:00 00:00:00 Ascenz [id number] it y of [place] [id number] Valdemar as Pedrito?Blea [phone] [address] Medical Office Building 2021-01-15 2021-01-15 Outpatient [facility] [id number] Univers 15:00:00 15:00:00 [facility]AMONG [facility] 2021-01-01 2021-01-01 Outpatient R [facility] [id number] Univers 13:15:00 13:15:00 ity [facility] 2020-12-31 2020-12-31 Office [facility] [id number] Univers 16:19:22 16:48:55 Visit Lillian Byrnes [id number] i ty [facility] [id number] [phone] Id dical nal 220 [facility] 2020-12-31 2020-12-31 Outpatient [facility] [id number] Univers 16:30:00 [facility]:30[facility] 2020-09-27 2020-09-27 Patient [facility] [id number] Univers 00:00:00 00:00:00 Secure Msg Lillian Byrnes [id number] ity [facility] [id number] [phone] Id dical nal 220 [facility] 2020-09-25 2020-09-25 Outpatient [facility] [id number] Univers 14:45:00 14:45:00 LILLIAN [facility] 2020-09-25 2020-09-25 Tray Checker 2, Adc Lab [facility] [id number] Univers 13:57:34 14:12:34 Visit Lillian Little [id number] ity [id number] [phone] Id dical nal 353 [facility] 2020-09-23 2020-09-23 Outpatient [facility] [id number] Univers 16:02:47 23:59:00 [facility]IAN [facility] 2020-08-29 2020-08-29 Outpatient [facility] [id number] Univers 09:45:00 09:45:00 [facility]ONG [facility] 2020-08-28 2020-08-28 Office [facility] [id number] Univers 15:06:19 16:11:56 Visit Lillian Soniya [id number] i ty [id number] [phone] Me dical [facility] 220 [facility] 2020-08-28 2020-08-28 Outpatient [facility] [id number] Univers 15:00:00 15:00:00 WENTONG ity [facility] 2020-08-17 2020-08-17 Outpatient R [facility] [id number] Univers 11:40:00 11:40:00 ity [facility] 2020-08-02 2020-08-02 Orders Doctor MAURIZIO [id number] Univers 00:00:00 00:00:00 Only Unassigned, CHIKIS [id number] ity of [place] [facility] [id number] Valdemar as [phone] [address] 2020-02-26 2020-02-26 Letter [facility] [id number] 00:00:00 00:00:00 (Out) Vy [place] [id number] [place] [id number] Professio [phone] [address] 2020-02-26 2020-02-26 [facility] [id number] 00:00:00 00:00:00 (Out) Vy [place] [id number] [place] [id number] Professio [phone] [address] 2020-02-26 2020-02-26 [facility] [id number] Univers 00:00:00 00:00:00 (Out) Vy [place] [id number] i ty of [id number] [phone] Id dic[address] 2020-02-26 2020-02-26 [facility] [id number] Univers 00:00:00 00:00:00 (Out) Vy [place] [id number] i ty [id number] [phone] Id dical nal 353 [facility] 2020-02-23 2020-02-23 Telephone MAURIZIO Dobbs [id number] 00:00:00 00:00:00 Vy CHIKIS [id number] [facility] [phone] [facility] 2020-02-23 2020-02-23 Telephone MAURIZIO Dobbs [id number] Univers 00:00:00 00:00:00 Vy FLORESY [id number] it y of [facility] [id number] Valdem[place] as [phone] [address] 2020-02-22 2020-02-22 Laboratory Lab, [facility] Fam Pob I [facility] 1.2. [id number] [facility] 09:46:55 10:06:55 Only Greta Sanchez [id number] ity of [place] [id number] [place]dem[place] as Professio [phone] [facility] 044 [place] Office [facility] 2020-02-22 2020-02-22 Laboratory Lab, [facility] 1.2.840.114 [id number] 09:46:55 10:06:55 Only Fam Pob I Health [id number] [place] [id number] Professio [phone] [place] [address] Office [facility] 2020-02-22 2020-02-22 Outpatient R [facility] [id number] [facility] 09:20:00 09:20:00 GRETA junior of [facility] Results Test Description Test Time Test Comments Results Result Comments Source SARS-COV2/RT-PCR ([facility]) 2020-03-12 10:34:00 Test Item Value Reference Range Interpretation Comme nts SARS-COV2/RT-PCR (test code = 5722900) Negative Not Detected, N egative, See external report for linked test SARS-COV-2 PERFORMING LAB (test code = [facility] 4825331) Negative result for this test determines that [...] of the Act.Fact Sheet for Healthcare Prov iders:https://www.[employer]/sites/default/files/product/documents/Fact_Sheet_HC _Rdftruspr_Lltw_CQMS-IyR-2.pdfFact Sheet for Healthcare Patients:https://www.[employer] [place]/sites/default/files/product/docume nts/Uoqg_Xgama_Bulevypa_Zcwk_OMKI-OaT-9.pdfPerforming Laboratory:[facility] [place] [address]
[2023-07-19 18:01] LABS: Absolute Lymphocytes (CBC) 2.2 K/uL (0.7-4.9); Hematocrit 37.1 % (36.0-45.0); Lymphocytes % 13.3 % (15.3-44.8); MCV 88.8 fL (80-100); MPV 8.5 fL (7.6-11.3); Platelets 232 thou/uL (152-406); RBC Red Blood Cell Count 4.18 M/uL (3.86-4.86)
[2023-07-19 18:09] LABS: Protime INR 0.97
[2023-07-19] MEDS ORDERED: ONDANSETRON 4 MG/2 ML VIAL ONE ×2 (18:39→22:10)
[2023-07-19] MEDS ORDERED: NA CHLORIDE 0.9% 1,000 ML ONE ×2 (18:39→21:00)
[2023-07-19] MEDS ORDERED: MORPHINE 4 MG/ML SYR ONE ×2 (18:39→22:09)
[2023-07-19 18:48] LABS: Albumin 3.7 g/dL (3.4-5.0); Bilirubin Total 0.2 mg/dL (0.2-1.0); Potassium 3.8 mEq/L (3.5-5.1); Protein, Total 7.2 g/dL (6.4-8.2)
--- NOTE | 2023-07-19 20:32 | RAD REPORT ---
EXAM DESCRIPTION: US - Transvaginal OB - 07/19/2023 8:17 pm CLINICAL HISTORY: hx of reported recent miscarriage Pelvic pain COMPARISON: Transvaginal OB dated 07/15/2023 FINDINGS: Uterus is normal in size. Endometrium 9 mm. No evidence of IUP seen. Both ovaries and bilateral maternal adnexa appear within normal range. IMPRESSION: No evidence of IUP noted. of unknown location or recent spontaneous a re possible. Advise serial HCG measurements and follow-up pelvic sonogram in 7-10 days.
[2023-07-19] MEDS ORDERED: METOCLOPRAMIDE 10 MG/2mL INJ ONE (20:59)
[2023-07-19] MEDS ORDERED: LORazepam 2 MG/ML VIAL ONE (21:00)
[2023-07-19] MEDS ORDERED: DOXYCYCLINE 100 MG CAP PO ONE (22:00)
[2023-07-19] MEDS ORDERED: KETOROLAC 30 MG/ML INJ ONE (22:00)
[2023-07-19] MEDS ORDERED: metroNIDAZOLE 500 MG TABLET ONE (22:00)
--- NOTE | 2023-07-19 22:26 | ER ---
Nurse's Notes [facility] Name: Esther Royal Age: 27 yrs Sex: Female : 1995 Arrival Date: 07/19/2023 Time: 16:52 Bed DX4 Private MD: Diagnosis: Complete or unspecified spontaneous without complication Presentation: 07/19 17:27 Chief complaint: Patient states: is having abd pain, nausea , some diarrhea, feels hot iw and cold, had a miscarriage yesterday , is having small amount of bleeding. Coronavirus screen: Client presents with at least one sign or symptom that may indicate coronavirus-19. Ebola Screen: Patient negative for fever greater than or equal to 101.5 degrees Fahrenheit, and additional compatible Ebola Virus Disease symptoms Patient denies exposure to infectious person. Patient denies travel to an Ebola-affected area in the 21 days before illness onset. No symptoms or risks identified at this time. Initial Sepsis Screen: Does the patient meet any 2 criteria? No. Patient's initial sepsis screen is negative. Does the patient have a suspected source of infection? No. Patient's initial sepsis screen is negative. Risk Assessment: Do you want to hurt yourself or someone else? Patient reports no desire to harm self or others. Onset of symptoms was July 19, 2023. 17:27 Method Of Arrival: Ambulatory iw 17:27 Acuity: PAVEL 3 iw Historical: - Allergies: 17:29 No Known Allergies; iw Screenin:32 [facility] ED Fall Risk Assessment (Adult) History of falling in the last 3 months, bp including since admission No falls in past 3 months (0 pts). Abuse screen: Denies threats or abuse. Denies injuries from another. Nutritional screening: No deficits noted. Tuberculosis screening: No symptoms or risk factors identified. Vital Signs: 17:30 BP 148 / 89; Pulse 65; Resp 16; Temp 98.1; Pulse Ox 99% on R/A; Weight 72.57 kg; Height iw 5 ft. 5 in. ; Pain 10/10; 17:30 Body Mass Index 26.63 (72.57 kg, 165.1 cm) iw 17:30 Pain Scale: Adult iw ED Course: 16:58 Patient arrived in ED. mg5 17:06 Yahir Reid PA is PHCP. cp 17:06 Abdoulaye Freed MD is Attending Physician. cp 17:28 Triage completed. iw 17:29 Arm band placed on. iw 17:56 Initial lab(s) drawn, by me, sent to lab. Inserted saline lock: 20 gauge in left em1 antecubital area, using aseptic technique. Blood collected. 20:19 US Transvaginal Ob In Process Unspecified. EDMS 21:37 Rashad Salinas MD is Attending Physician. cp 23:32 Patient has correct armband on for positive identification. bp 23:32 No provider procedures requiring assistance completed. IV discontinued, intact, bp bleeding controlled, No redness/swelling at site. Pressure dressing applied. Administered Medications: 18:20 Drug: NS 0.9% IV 1000 ml IV at 1 bolus Per protocol; 1000 mL bolus Route: IV; Rate: 1 jl7 bolus; Site: left antecubital; 23:30 Follow up: IV Status: Completed infusion; IV Intake: 1000ml bp 18:22 Drug: Ondansetron IVP 4 mg IVP once; over 2 minutes Route: IVP; Site: left antecubital; jl7 23:30 Follow up: Response: No adverse reaction bp 18:32 Drug: morphine IVP or IV 4 mg IVP once over 4 mins Route: IVP; Infused Over: 4 mins; jl7 Site: left antecubital; 20:59 Drug: NS 0.9% IV 1000 ml IV at 200 ml/hr continuous Route: IV; Rate: 200 ml/hr; Site: bp left antecubital; 23:31 Follow up: IV Status: Completed infusion; IV Intake: 1000ml bp 20:59 Drug: Ativan IVP 0.5 mg IVP once Route: IVP; Site: left antecubital; bp 23:31 Follow up: Response: No adverse reaction bp 20:59 Drug: metoCLOPramide IVP 10 mg IVP once; over 1 to 2 minutes Route: IVP; Site: left bp antecubital; 23:31 Follow up: Response: No adverse reaction bp 21:36 CANCELLED (Physician Discretion): mg PO once cp 21:59 Drug: metroNIDAZOLE PO 500 mg PO once Route: PO; bp 23:31 Follow up: Response: No adverse reaction bp 21:59 Drug: Doxycycline PO 100 mg PO once Route: PO; bp 23:31 Follow up: Response: No adverse reaction bp 21:59 Drug: Ketorolac IVP 15 mg IVP once Route: IVP; Site: left antecubital; bp 23:31 Follow up: Response: No adverse reaction bp 21:59 Drug: Ondansetron IVP 4 mg IVP once; over 2 minutes Route: IVP; Site: left antecubital; bp 23:32 Follow up: Response: No adverse reaction bp 21:59 Drug: morphine IVP or IV 4 mg IVP once over 4 mins Route: IVP; Infused Over: 4 mins; bp Site: left antecubital; 23:32 Follow up: Response: No adverse reaction bp Intake: 23:30 IV: 1000ml; Total: 1000ml. bp 23:31 IV: 1000ml; Total: 2000ml. bp Outcome: 22:25 Discharge ordered by MD. cp 23:32 Discharged to home ambulatory, bp 23:32 Condition: stable 23:32 Discharge instructions given to patient, Instructed on discharge instructions, follow up and referral plans. medication usage, Demonstrated understanding of instructions, follow-up care, medications, Prescriptions given X 4, 23:33 Patient left the ED. bp Signatures: Dispatcher [employer] EDMS Connie Thrasher RN RN iw Martinez, Eric em1 Yahir Reid PA PA cp Leal, Jahala, RN RN jl7 Grady Mejía RN RN Bianca Doran mg5
--- NOTE | 2023-07-19 22:26 | EDPHYS ---
Physician Documentation [facility] Name: Esther Royal Age: 27 yrs Sex: Female : 1995 Arrival Date: 07/19/2023 Time: 16:52 Bed DX4 Private MD: ED Physician Rashad Salinas HPI: 07/19 17:33 This 27 yrs old Female presents to ER via Ambulatory with complaints of cp Abdominal Pain. 17:33 The patient presents with abdominal pain in the lower abdomen. cp 17:33 Associated signs and symptoms: Pertinent positives: nausea and vomiting, diarrhea, cp fever, vaginal bleeding. 17:33 Patient returns to ED after being seen 07/15/2023 for abdominal pain and vaginal cp bleeding. At visit, patient with positive test. US performed that did not show an IUP. Patient instructed to f/u for repeat beta-hcg in 48 hrs. Patient returns to ED today with c/o abdominal pain, N/V, light vaginal bleeding. Historical: - Allergies: 17:29 No Known Allergies; iw ROS: 17:35 Constitutional: Positive for body aches, poor PO intake, Negative for fever, cp 17:35 Respiratory: Negative for cough, shortness of breath, wheezing, cp 17:35 Abdomen/GI: Positive for abdominal pain, nausea and vomiting, 17:35 : Positive for vaginal bleeding, 17:35 Neuro: Negative for altered mental status, headache, syncope, 17:35 Eyes: Negative for injury, pain, redness, and discharge, cp 17:35 ENT: Negative for drainage from ear(s), ear pain, sore throat, 17:35 Cardiovascular: Negative for chest pain, edema, palpitations, 17:35 Back: Negative for pain at rest, pain with movement, cp 17:35 All other systems are negative, Exam: 17:40 Constitutional: The patient appears in no acute distress, alert, awake, non-toxic, well cp developed, well nourished, uncomfortable, 17:40 Head/Face: Normocephalic, atraumatic. cp 17:40 Eyes: Periorbital structures: appear normal, Conjunctiva: normal, no exudate, no injection, Sclera: no appreciated abnormality, Lids and lashes: appear normal, bilaterally, 17:40 ENT: External ear(s): are unremarkable, Nose: is normal, Mouth: Lips: moist, Oral mucosa: pink and intact, moist, Posterior pharynx: Airway: no evidence of obstruction, patent, 17:40 Chest/axilla: Inspection: normal, 17:40 Cardiovascular: Rate: normal, Rhythm: regular, 17:40 Respiratory: the patient does not display signs of respiratory distress, Respirations: normal, no use of accessory muscles, no retractions, labored breathing, is not present, Breath sounds: are clear throughout, no decreased breath sounds, no stridor, no wheezing, 17:40 Abdomen/GI: Inspection: abdomen appears normal, Palpation: soft, in all quadrants, moderate abdominal tenderness, in the right lower quadrant and left lower quadrant, rebound tenderness, is not appreciated, involuntary guarding, is not appreciated, 17:40 Back: CVA tenderness, is absent, 17:40 Neuro: Orientation: to person, place \T\ time. Mentation: is normal, Motor: moves all fours, strength is normal, Gait: is steady, Vital Signs: 17:30 BP 148 / 89; Pulse 65; Resp 16; Temp 98.1; Pulse Ox 99% on R/A; Weight 72.57 kg; Height iw 5 ft. 5 in. ; Pain 10/10; 17:30 Body Mass Index 26.63 (72.57 kg, 165.1 cm) iw 17:30 Pain Scale: Adult iw MDM: 17:28 Patient medically screened. cp 22:25 Data reviewed: vital signs, nurses notes, lab test result(s), radiologic studies, cp ultrasound. 22:25 Differential diagnosis: Ectopic , non-specific abd pain, Tubal Ovarian Abcess, cp Ureterolithiasis, urinary tract infection, retained products. I considered the following discharge prescriptions or medication management in the emergency department Medications were administered in the Emergency Department. See MAR. Counseling: I had a detailed discussion with the patient and/or guardian regarding the historical points, exam findings, and any diagnostic results supporting the discharge/admit diagnosis, lab results, radiology results, to return to the emergency department if symptoms worsen or persist or if there are any questions or concerns that arise at home. Response to treatment: the patient's symptoms have markedly improved after treatment, patient is well hydrated. and as a result, I will discharge patient. 07/19 17:30 Order name: CBC with Diff; Complete Time: 18:11 cp 07/19 18:11 Interpretation: Normal except: WBC 16.30; MARTHA% 82.0; LYM% 13.3; NEUT A 13.3. cp 07/19 17:30 Order name: CMP cp 07/19 19:40 Interpretation: Normal except: CL 108; GLUC 124; AST 10. cp 07/19 17:30 Order name: Lipase cp 07/19 17:30 Order name: PT-INR; Complete Time: 18:11 cp 07/19 17:30 Order name: Ptt, Activated; Complete Time: 18:11 cp 07/19 17:30 Order name: Quantitative Hcg cp 07/19 17:34 Order name: Lactate w/ 2H reflex if indic.; Complete Time: 18:33 cp 07/19 18:34 Interpretation: Reviewed. 07/19 19:52 Order name: US Transvaginal Ob; Complete Time: 20:45 rv1 07/19 20:45 Interpretation: Report reviewed. 07/19 17:30 Order name: IV Saline Lock; Complete Time: 17:56 07/19 17:30 Order name: Labs collected and sent; Complete Time: 17:56 07/19 21:04 Order name: PO challenge; Complete Time: 21:59 cp Administered Medications: 18:20 Drug: NS 0.9% IV 1000 ml IV at 1 bolus Per protocol; 1000 mL bolus Route: IV; Rate: 1 jl7 bolus; Site: left antecubital; 23:30 Follow up: IV Status: Completed infusion; IV Intake: 1000ml bp 18:22 Drug: Ondansetron IVP 4 mg IVP once; over 2 minutes Route: IVP; Site: left antecubital; jl7 23:30 Follow up: Response: No adverse reaction bp 18:32 Drug: morphine IVP or IV 4 mg IVP once over 4 mins Route: IVP; Infused Over: 4 mins; jl7 Site: left antecubital; 20:59 Drug: NS 0.9% IV 1000 ml IV at 200 ml/hr continuous Route: IV; Rate: 200 ml/hr; Site: bp left antecubital; 23:31 Follow up: IV Status: Completed infusion; IV Intake: 1000ml bp 20:59 Drug: Ativan IVP 0.5 mg IVP once Route: IVP; Site: left antecubital; bp 23:31 Follow up: Response: No adverse reaction bp 20:59 Drug: metoCLOPramide IVP 10 mg IVP once; over 1 to 2 minutes Route: IVP; Site: left bp antecubital; 23:31 Follow up: Response: No adverse reaction bp 21:36 CANCELLED (Physician Discretion): [id number] mg PO once cp 21:59 Drug: metroNIDAZOLE PO 500 mg PO once Route: PO; bp 23:31 Follow up: Response: No adverse reaction bp 21:59 Drug: Doxycycline PO 100 mg PO once Route: PO; bp 23:31 Follow up: Response: No adverse reaction bp 21:59 Drug: Ketorolac IVP 15 mg IVP once Route: IVP; Site: left antecubital; bp 23:31 Follow up: Response: No adverse reaction bp 21:59 Drug: Ondansetron IVP 4 mg IVP once; over 2 minutes Route: IVP; Site: left antecubital; bp 23:32 Follow up: Response: No adverse reaction bp 21:59 Drug: morphine IVP or IV 4 mg IVP once over 4 mins Route: IVP; Infused Over: 4 mins; bp Site: left antecubital; 23:32 Follow up: Response: No adverse reaction bp Disposition: 23:06 Co-signature as Attending Physician, Rashad Salinas MD I agree with the assessment sp4 and plan of care. I reviewed the patient's care provided by the Advanced Practice Provider and agree with the diagnosis and treatment plan. Disposition Summary: 07/19/23 22:25 Discharge Ordered Notes: Location: Home cp Problem: new cp Symptoms: have improved cp Condition: Stable cp Diagnosis - Complete or unspecified spontaneous without complication cp Followup: cp - With: Private Physician - When: 1 week - Reason: Recheck today's complaints Discharge Instructions: - Discharge Summary Sheet cp - Miscarriage cp - Managing Loss cp Forms: - Medication Reconciliation Form cp - Thank You Letter cp - Antibiotic Education cp - Prescription Opioid Use cp - Patient Portal Instructions cp - Leadership Thank You Letter cp Prescriptions: - acetaminophen-codeine 300-30 mg Oral tablet - take 2 tablet ORAL route every 6 hours As needed as needed for pain; 16 tablet; cp Refills: 0, Product Selection Permitted - Doxycycline Hyclate 100 mg Oral Tablet - take 1 tablet ORAL route every 12 hours; 20 tablet; Refills: 0, Product cp Selection Permitted - Metronidazole 500 mg Oral Tablet - take 1 tablet ORAL route every 8 hours; 30 tablet; Refills: 0, Product cp Selection Permitted - promethazine 25 mg Oral Tablet - take 1 tablet ORAL route every 6 hours As needed; 20 tablet; Refills: 0, cp Product Selection Permitted Signatures: Dispatcher [employer] EDMS Connie Thrasher, GABRIELLA RN iw Yahir Reid PA PA cp Leal, Jahala, RN RN jl7 Grady Mejía RN RN bp Rashad Salinas MD MD sp4 Corrections: (The following items were deleted from the chart) 19:02 17:56 Transvaginal Ob+US.RAD.BRZ ordered. EDMS EDMS 19:06 18:12 Influenza Screen (A \T\ B)+BA.LAB.BRZ ordered. EDMS EDMS 19:06 18:12 SARS-COV-2 RT PCR+MOL.LAB.BRZ ordered. EDMS EDMS 19:51 19:40 Transvaginal Ob+US.RAD.BRZ ordered. EDMS EDMS 21:36 21:35 Cephalexin PO 500 mg PO once ordered. sp4 cp 07/20 12:58 12 17:33 Patient returns to ED after being seen. cp cp
[2023-07-20 00:46] VITALS: BP 148/89; TEMP 98.1; O2SAT 99
== END 2023-07-19 23:33 | disposition home or self-care (01) ==
LOC: ER 16:52
DX: O03.9 Complete or unspecified spontaneous abortion without complication (principal)
CPT/HCPCS: 36415; 76817; 80053; 83605; 83690; 84702; 85025; 85610; 85730; 96361; 96374; 96375; 99284; J2405; J2765; J7030

== ENCOUNTER 2025-04-03 16:36 | Emergency (ER) | payer OTHER ==
[2025-04-03] MEDS ORDERED: LIDOCAINE 1% 20 ML MDV ONE (17:03)
[2025-04-03] MEDS ORDERED: TDAP (DIPHTH,PERTUSS(ACELL),TET VAC) 0.5 ML VIAL IMVAC ONE (17:03)
--- NOTE | 2025-04-03 17:46 | ER ---
Nurse's Notes [facility] Name: Esther Royal Age: 29 yrs Sex: Female : 1995 Arrival Date: 04/03/2025 Time: 16:36 Bed 8 Private MD: Diagnosis: Laceration without foreign body of lower leg Presentation: 04/03 16:44 Chief complaint: Patient states: SHE KICKED THROUGH A GLASS WINDOW, CUTTING RIGHT LEG. dd2 Coronavirus screen: At this time, the client does not indicate any symptoms associated with coronavirus-19. Ebola Screen: No symptoms or risks identified at this time. Complicating Factors: UNKNOWN AT THIS TIME. Initial Sepsis Screen: Does the patient meet any 2 criteria? No. Patient's initial sepsis screen is negative. Does the patient have a suspected source of infection? No. Patient's initial sepsis screen is negative. Risk Assessment: Do you want to hurt yourself or someone else? Patient reports no desire to harm self or others. Onset of symptoms was April 03, 2025. 16:44 Method Of Arrival: Ambulatory dd2 16:44 Acuity: PAVEL 3 dd2 Triage Assessment: 16:46 General: Appears in no apparent distress. uncomfortable, Behavior is cooperative, dd2 appropriate for age, crying. Pain: Denies pain. Complains of pain in medial aspect of right calf. Injury Description: Laceration sustained to medial aspect of right calf is bleeding profusely a dressing was applied. 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 - Infectious Disease History:: Denies. - Social history:: Smoking status: Patient denies any tobacco usage or history of. Screenin:00 [facility] ED Fall Risk Assessment (Adult) History of falling in the last 3 months, bp including since admission No falls in past 3 months (0 pts) Confusion or Disorientation No (0 pts) Intoxicated or Sedated No (0 pts) Impaired Gait No (0 pts) Mobility Assist Device Used No (0 pt) Altered Elimination No (0 pt) Score/Fall Risk Level 0 - 2 = Low Risk Oriented to surroundings. Abuse screen: Denies threats or abuse. Denies injuries from another. Nutritional screening: No deficits noted. Tuberculosis screening: No symptoms or risk factors identified. Assessment: 17:00 General: SEE TRIAGE NOTE. bp 18:16 Musculoskeletal: Circulation, motion, and sensation intact. Range of motion: intact in bp all extremities. Injury Description: Laceration is not bleeding. Vital Signs: 16:44 BP 129 / 84; Pulse 106; Resp 17; Temp 98.2; Pulse Ox 98% on R/A; Pain 0/10; dd2 18:16 BP 121 / 79; Pulse 89; Resp 16; Pulse Ox 99% ; bp 16:44 Pain Scale: Adult dd2 ED Course: 16:40 Patient arrived in ED. im 16:40 Marianne Arzola FNP-C is PHCP. kb 16:40 Abdoulaye Freed MD is Attending Physician. kb 16:46 Triage completed. dd2 16:46 Arm band placed on right wrist. dd2 16:55 Grady Mejía, RN is Primary Nurse. bp 17:00 Patient has correct armband on for positive identification. bp 18:15 Assist provider with laceration repair on right melara that was between 7.6 to 12.5 cm bp using sutures. Set up tray. Performed by Marianne DENISE Dressed with Neosporin, Patient tolerated well. Patient did not have IV access during this emergency room visit. Administered Medications: 17:11 Drug: Boostrix Tdap IM 0.5 ml IM once; as a single dose Route: IM; Site: right deltoid; bp 18:17 Follow up: Response: No adverse reaction bp 17:11 Drug: Lidocaine Infiltration (1 %) 1 vials 20 ml Infiltration once; to bedside Volume: bp 20 ml; Route: Infiltration; Medication: 17:00 VIS not applicable for this client. bp Outcome: 17:46 Discharge ordered by MD. kb 18:15 Discharged to home via wheelchair, with family, bp 18:15 Condition: stable 18:15 Discharge instructions given to patient, Instructed on discharge instructions, follow up and referral plans. medication usage, wound care, Demonstrated understanding of instructions, follow-up care, medications, wound care, Prescriptions given X 1, 18:17 Patient left the ED. bp Signatures: Marianne Arzola FNP-C FNP-Grady Vasques, RN RN bp Rashida Garcia DIANA, RN RN dd2
--- NOTE | 2025-04-03 17:46 | EDPHYS ---
Physician Documentation [facility] Name: Esther Royal Age: 29 yrs Sex: Female : 1995 Arrival Date: 04/03/2025 Time: 16:36 Bed 8 Private MD: ED Physician Abdoulaye Freed HPI: 04/03 17:45 This 29 yrs old Female presents to ER via Ambulatory with complaints of kb Laceration To Leg. 17:45 Pt is a 29 year old female who presents for laceration to lower right leg after kicking kb a glass window. Denies any other injuries. . 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 - Infectious Disease History:: Denies. - Social history:: Smoking status: Patient denies any tobacco usage or history of. ROS: 17:44 Constitutional: As per HPI kb Exam: 17:44 Constitutional: This is a well developed, well nourished patient who is awake, alert, kb and in no acute distress. Head/Face: Normocephalic, atraumatic. ENT: Moist Mucous membranes Respiratory: Respirations even and unlabored. No increased work of breathing. Talking in full sentences MS/ Extremity: Pulses equal, no cyanosis. Neurovascular intact. Full, normal range of motion. Neuro: Awake and alert, GCS 15, oriented to person, place, time, and situation. 17:44 Skin: injury, abrasion(s), small abrasion noted, of the plantar aspect of right first toe and right melara, laceration(s), the wound is approximately 11 cm(s), of the medial aspect of right calf and right melara, that can be described as clean, no foreign body, irregular, with mild bleeding, Vital Signs: 16:44 BP 129 / 84; Pulse 106; Resp 17; Temp 98.2; Pulse Ox 98% on R/A; Pain 0/10; dd2 18:16 BP 121 / 79; Pulse 89; Resp 16; Pulse Ox 99% ; bp 16:44 Pain Scale: Adult dd2 Laceration: 17:42 Wound Repair of 11cm ( 4.3in ) subcutaneous laceration to medial aspect of right calf kb and right melara. Irregularly shaped.. Distal neuro/vascular/tendon intact. Anesthesia: Wound infiltrated with 10 mls of 1% lidocaine. Wound prep: Extensive cleansing with hibiclenz by me, Wound irrigation with saline by me. Skin closed with 10 4-0 Prolene using 7 cruciate knots, 3 simple sutures. Patient tolerated well. MDM: 16:40 Medical Screening Exam initiated kb 17:43 Differential diagnosis: superficial laceration, tendon injury, vascular injury. Data kb reviewed: vital signs, nurses notes. Test considered but Not performed: X-ray: tib/fib xray considered but am able to evaluate the depth of the laceration, no bony involvement, no bony tenderness. Counseling: I had a detailed discussion with the patient and/or guardian regarding the historical points, exam findings, and any diagnostic results supporting the discharge/admit diagnosis, the need for outpatient follow up, a family practitioner, to return to the emergency department if symptoms worsen or persist or if there are any questions or concerns that arise at home. 04/03 16:47 Order name: Dressing - Wound; Complete Time: 17:11 04/03 16:47 Order name: Gloves, Sterile; Complete Time: 17:11 04/03 16:47 Order name: Prolene, Sutures; Complete Time: 17:11 04/03 16:47 Order name: Setup Suture Tray; Complete Time: 17:11 Administered Medications: 17:11 Drug: Boostrix Tdap IM 0.5 ml IM once; as a single dose Route: IM; Site: right deltoid; bp 18:17 Follow up: Response: No adverse reaction bp 17:11 Drug: Lidocaine Infiltration (1 %) 1 vials 20 ml Infiltration once; to bedside Volume: bp 20 ml; Route: Infiltration; Disposition Summary: 04/03/25 17:46 Discharge Ordered Condition: Stable kb Diagnosis - Laceration without foreign body of lower leg kb Followup: kb - With: Emergency Department - When: As needed - Reason: Worsening of condition Followup: kb - With: Private Physician - When: 2 - 3 days - Reason: Recheck today's complaints, Continuance of care, Re-evaluation by your physician Discharge Instructions: - Discharge Summary Sheet kb - Laceration Care, Adult, [id number] Forms: - Medication Reconciliation Form kb - Antibiotic Education kb - Prescription Opioid Use kb - Patient Portal Instructions kb - Leadership Thank You Letter kb Prescriptions: - Cephalexin 500 mg Oral Capsule - take 1 capsule ORAL route every 8 hours for 10 days; 30 capsule; Refills: 0, kb Product Selection Permitted Signatures: Marianne Arzola FNP-C FNP-Ckb Peltier, Brian, RN RN bp ESME SUÁREZ RN RN dd2
[2025-04-03 21:55] VITALS: TEMP 98.2
[2025-04-03 21:57] VITALS: BP 121/79; O2SAT 99
== END 2025-04-03 18:17 | disposition home or self-care (01) ==
LOC: ER 16:36
DX: S81.811A Laceration without foreign body, right lower leg, initial encounter (principal); W25.XXXA Contact with sharp glass, initial encounter; Z23 Encounter for immunization
CPT/HCPCS: 90715; 96372; 99284; 12034; J2003